=== PATIENT | female | born 1980 | race Caucasian/White ===

== ENCOUNTER 2019-05-07 21:54 | Inpatient (IN) | payer OTHER ==
[2019-05-07] MEDS ORDERED: ACETAMINOPHEN INJECTION 100 ML IVPB ONE (22:04)
--- NOTE | 2019-05-07 22:50 | PDOC ---
History of Present Illness - General Chief Complaint: Pain Stated Complaint: BI/LATERAL PATELLA/PAIN Time Seen by Provider: 05/07/19 22:40 - History of Present Illness Initial Comments: 05/08/19 00:49 39 yo F no PMH presenting with myalgias. Reports that she went to [facility] on Wednesday due to swelling and pain in her L knee. Reports that the knee was drained and she was diagnosed with bursitis, sent home on ibuprofen 800mg. However, since discharge she has had worsening muscle pains in her leg along with weakness. States that she has been unable to go to the pharmacy to get her ibuprofen, has not eaten or drank much in several days due to difficulty with mobility (using crutches currently). Further complains of chills and subjective fever. Denies being sexually active or having multiple sexual partners. No known tick exposure. Denies CP, SOB, recent travel, [place], N/V, sick contacts, constipation/diarrhea, urinary changes. Endorses myalgias, generalized weakness, chills. Past History - Past Medical History Allergies/Adverse Reactions: Allergies Allergy/AdvReac Type Severity Reaction Status Date / Time No Known Allergies Allergy Verified 05/08/19 00:06 COPD: No - Psycho Social/Smoking Cessation Hx Smoking History: Never smoked Review of Systems - Review of Systems Comments:: 05/08/19 04:41 GENERAL/CONSTITUTIONAL: No fever or chills. Generalized weakness. HEAD, EYES, EARS, NOSE AND THROAT: No change in vision. No ear pain or discharge. No sore throat. CARDIOVASCULAR: No chest pain or shortness of breath. RESPIRATORY: No cough, wheezing, or hemoptysis. GASTROINTESTINAL: No nausea, vomiting, diarrhea or constipation. GENITOURINARY: No dysuria, frequency, or change in urination. MUSCULOSKELETAL: Generalized myalgias, swelling in b/l knees. No neck or back pain. SKIN: No rash NEUROLOGIC: No headache, vertigo, loss of consciousness, or change in strength/ sensation. ENDOCRINE: No increased thirst. No abnormal weight change. HEMATOLOGIC/LYMPHATIC: No anemia, easy bleeding, or history of blood clots. ALLERGIC/IMMUNOLOGIC: No hives or skin allergy *Physical Exam - Vital Signs Last Vital Signs Temp Pulse Resp BP Pulse Ox 98 F 124 H 20 115/69 98 05/07/19 22:12 05/07/19 22:12 05/07/19 22:12 05/07/19 22:12 05/07/19 22:12 - Physical Exam 05/08/19 04:42 Gen: well-developed, well-nourished, NAD Neuro: AAOX4, CN II-XII intact, FTN intact, EOMI, PERRLA, 5/5 strength, SILT. Normal reflexes. HEENT: atraumatic, normocephalic, dry mucous membranes Neck: trachea midline, supple CV: regular rate, regular rhythm, no murmurs, rubs, or gallops Pulm: CTA b/l, no wheezing Abd: soft, non-distended, non-tender MSK: Intact pulses. ttp in b/l thighs, pain with extension at the knees. Extr: mild b/l knee edema, no deformities Skin: warm, dry ED Treatment Course - LABORATORY CBC & Chemistry Diagram: 05/08/19 00:20 05/08/19 00:20 Medical Decision Making - Medical Decision Making 05/08/19 00:13 Patient presenting with weakness, mild swelling in both legs, myalgias, febrile. - CBC, CMP - ESR/CRP - Ofirmev - reassess 05/08/19 01:14 WBC 16.1, LFTs elevated, CRP elevated. Will send Lyme, admit. 05/08/19 01:38 EKG sinus tachycardia at 113 bpm. Discharge - Discharge Information Problems reviewed: Yes Clinical Impression/Diagnosis: Generalized weakness - Follow up/Referral - Patient Discharge Instructions - Post Discharge Activity
[2019-05-07] MEDS ORDERED: ACETAMINOPHEN 1000 MG/100 ML VIAL (NON FORMULARY) IVPB ONE (23:14)
[2019-05-08 00:40] LABS: BASO % 0.7 % (0-2.0); EOS % 0.3 % (0-4.5); LYMPH % 13.4 % (8-40); MCH 29.4 pg (25.7-33.7); MCHC 33.2 g/dl (32.0-36.0); MEAN CELL VOLUME 88.6 fl (80-96); MEAN PLT VOLUME 8.3 fl (7.5-11.1); MONO % 8.5 % (3.8-10.2); NEUT % 77.1 % (42.8-82.8); PLATELET COUNT 651 K/MM3 (134-434); RBC 4.07 M/mm3 (3.60-5.2); RDW 12.9 % (11.6-15.6); WHITE BLOOD COUNT 16.1 K/mm3 (4.0-10.0)
[2019-05-08 01:04] LABS: ALBUMIN 3.3 g/dl (3.4-5.0); BLOOD UREA NITROGEN 31.7 mg/dL (7-18); CALCIUM 10.1 mg/dL (8.5-10.1); CREATININE 1.1 mg/dL (0.55-1.3); POTASSIUM 3.8 mmol/L (3.5-5.1); TOT PROT 8.6 g/dl (6.4-8.2)
--- NOTE | 2019-05-08 01:31 | PDOC ---
Documentation entered by Sampson Obregon SCRIBE, acting as scribe for Lianna Holliday MD. Lianna Holliday MD: This documentation has been prepared by the rickibe, Sampson Obregon SCRIBE, under my direction and personally reviewed by me in its entirety. I confirm that the documentation accurately reflects all work, treatment, procedures, and medical decision making performed by me. Attending Attestation - Resident Resident Name: Danuta Baca - ED Attending Attestation I have performed the following: I have examined & evaluated the patient, The case was reviewed & discussed with the resident, I agree w/resident's findings & plan, Exceptions are as noted - HPI HPI: 05/07/19 23:08 The patient is a 39 year old female with no past medical history here today for evaluation of bilateral knee pain. The patient reports that she was seen at [facility] on Wednesday for left knee pain and had her left knee drained. She states that since then she has had knee pain with right leg extension and left leg flexion especially when standing up and feels weak due to this pain. She also notes a poor PO intake due to her knee pain. Patient denies headache, lightheadedness. Denies fever, chills. Denies chest pain, shortness of breath. Denies nausea, vomiting, diarrhea, abdominal pain. - Physicial Exam PE: 05/08/19 01:29 39-year-old female presents in no acute distress with complaint of increasing weakness in her legs since she had a reported of her left knee in the ER on Wednesday05/08/19 02:[address] Gerard's physical exam - Medical Decision Making 05/08/19 02:28 Patient did not complain of any fever or chills or nausea or vomiting or headache or shortness of breath upon arrival This patient states she has no significant past medical history and takes no medications Patient had normal rectal tone, no loss of sensation in her extremities, deep tendon reflexes were normal The skin had no signs of induration or erythema Repeat oral temp is 99.5 Review of her labs shows a leukocytosis of 16,000 05/08/19 02:29 She has abnormal chemistries with elevated liver function tests and also a glucose of 165 05/08/19 02:31 concern for this 39-year-old female complaining of joint/extremity pain who has a low-grade temp would be arthritis possibly Lyme Lyme titers were sent 05/08/19 02:32 Patient will be admitted to [facility] for further work-up
--- NOTE | 2019-05-08 02:32 | PN ---
Teaching Attending Note Name of Resident: Melly Mcarthur ATTENDING PHYSICIAN STATEMENT I saw and evaluated the patient. I reviewed the resident's note and discussed the case with the resident. I agree with the resident's findings and plan as documented. SUBJECTIVE: Patient 39 year old woman with no significant PMH presenting with myalgias. Reports that she went to [facility] on Wednesday due to swelling and pain in her left knee. Reports that the knee was drained and she was diagnosed with bursitis, sent home on ibuprofen 800 mg. However, since discharge she has had worsening muscle pains in her leg along with weakness. States that she has been unable to go to the pharmacy to get her ibuprofen, has not eaten or drank much in several days due to difficulty with mobility (using crutches currently). Further complains of chills and subjective fever. Denies being sexually active or having multiple sexual partners. No known tick exposure. Denies chest pain, SOB, recent travel, headache, nausea, vomiting, constipation, diarrhea or dysuria. Has myalgias, generalized weakness and chills. Had contact with one of her sister's sick children over 2 weeks ago. Did not get the Flu vaccine. Denies alcohol, tobacco or illicit drug use. Has not been sexually active for over a year, is not using any contraception and has regular periods. OBJECTIVE: Alert Vital Signs Period Temp Pulse Resp BP Sys/Urrutia Pulse Ox Last 24 Hr 98 F 124 20 115/69 98 HEENT: No Jaundice, eye redness or discharge, PERRLA, EOMI. Normocephalic, atraumatic. External ears are normal and hearing is grossly intact. No nasal discharge. Neck: Supple, nontender. No palpable adenopathy or thyromegaly. No JVD Chest: Good effort. Clear to auscultation and percussion. Heart: Regular. No S3, rub or murmur Abdomen: Not distended, soft, nontender and no HSM. No rebound or guarding. Normal bowel sounds. Ext: Peripheral pulses intact. No leg edema. Skin: Warm and dry. No petechiae, rash or ecchymosis. Neuro: Alert. Oriented x3. CN 2-12 grossly intact. Sensation grossly intact in all four extremities and DTR are symmetric. Psych: Appropriate mood and affect. Good insight. Abnormal Lab Results 05/08/19 05/08/19 05/08/19 00:20 00:20 00:20 WBC 16.1 H Plt Count 651 H Absolute Neuts (auto) 12.4 H ESR Chloride 94 L BUN 31.7 H Random Glucose 165 H AST 101 H ALT 132 H Alkaline Phosphatase 284 H C-Reactive Protein 17.2 H Total Protein 8.6 H Albumin 3.3 L 05/08/19 00:20 WBC Plt Count Absolute Neuts (auto) ESR 90 H Chloride BUN Random Glucose AST ALT Alkaline Phosphatase C-Reactive Protein Total Protein Albumin ASSESSMENT AND PLAN: 1. Generalized weakness/?Migrating arthropathy - Etiology unclear. Flu swab is negative. No acute abnormality on CXR. EKG shows sinus tachycardia with a rate of 113 and LAE. STI panel sent as well as Lyme tests. Will get stat abdominal sonogram and hepatitis serology to evaluate elevated LFTs. Trend LFTs, get blood cultures, HbA1c, uric acid, BISHNU, RF, RPR, SPEP, Knee xrays and HIV test. Urinalysis and urine toxicology pending. Will contact [facility] during the day to get medical records. Though presentation not classic for septic arthritis , her leukocytosis and left shift are concerning - will treat empirically with IV Ancef 2 gm q 8 hours for now pending workup results. Consult ID and Rheumatology. 2. Hypoalbuminemia - Possibly due to combined effects of malnutrition and inflammation associated with comorbid chronic conditions. Will ensure adequate dietary protein intake and also consult trust and estates attorney. 3. ALPHONSE - Likely partly due to dehydration. Will get kidney sonogram, CPK, stat urinalysis, Mg+, phosphate, hydrate and monitor urine output. Avoid nephrotoxic agents such as NSAIDS, aminoglycosides, contrast dyes and certain Alternative medicine products. 4. DVT prophylaxis - Lovenox 40 mg SQ q 24 hours. 5. Advance directives - Full code
--- NOTE | 2019-05-08 03:16 | HP ---
CHIEF COMPLAINT: generalized weakness and joint stiffness PCP: None HISTORY OF PRESENT ILLNESS: 39 y/o woman with no significant PMH presenting to ED because of generalized weakness and migratory joint stiffness/swelling for over a week. According to the patient, over a week ago she experienced mild swelling and stiffness in her left ankle which improved on its own; then her left knee became red, swollen and she could not bear weight on that leg. At that point, she went to [facility] on Wednesday due to the swelling and pain in her left knee. She states that the knee was drained ( yellow/purulent fluid) and she was diagnosed with bursitis and sent home on ibuprofen 800 mg. However, since discharge 3 days ago , she begin to experience stiffness in the right knee and inability to ambulate as a result. She endorsed subjective fevers and chills and sick contact (her niece) but denies any improvement to her joint stiffness as the day prolongs, being sexually active (last intercourse 1.5 yrs ago) or having multiple sexual partners, tick bites, or family history of autoimmune arthritis. She explains that she has been unable to go to the pharmacy to get her ibuprofen, has not eaten or drank much in several days due to difficulty with mobility (using crutches currently) and loss of appetite. She does admit to being unvaccinated. 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 She denies any chest pain, SOB, recent travel, headache, nausea, vomiting, constipation, diarrhea, vaginal discharge, or dysuria. Denies alcohol, tobacco or illicit drug use. NO Dr visit in over a year. ER course was notable for: (1) VS tachy 124, CBC with leukocytosis 16.1, thrombocytosis 651, CMP BUN/Cr 31.7/1.1, BG 165, AST 101, ALT 132, ALP 284, CRP 17.2, ESR 90 (2) UA pending, CXR negative, flu neg (3) orfimev Recent Travel: none PAST MEDICAL HISTORY: none PAST SURGICAL HISTORY: none Social History: Smoking:denies Alcohol:denies Drugs: denies Allergies No Known Allergies Allergy (Verified 05/08/19 00:06) HOME MEDICATIONS: REVIEW OF SYSTEMS CONSTITUTIONAL: fever, chills, generalized weakness, malaise, loss of appetite Absent: diaphoresis, weight change HEENT: Absent: rhinorrhea, nasal congestion, throat pain, throat swelling, difficulty swallowing, mouth swelling, ear pain, eye pain, visual changes CARDIOVASCULAR: Absent: chest pain, syncope, palpitations, irregular heart rate, lightheadedness , peripheral edema RESPIRATORY: Absent: cough, shortness of breath, dyspnea with exertion, orthopnea, wheezing, stridor, hemoptysis GASTROINTESTINAL: Absent: abdominal pain, abdominal distension, nausea, vomiting, diarrhea, constipation, melena, hematochezia GENITOURINARY: Absent: dysuria, frequency, urgency, hesitancy, hematuria, flank pain, genital pain MUSCULOSKELETAL: arthralgia, joint swelling Absent: myalgia, back pain, neck pain SKIN: Absent: rash, itching, pallor HEMATOLOGIC/IMMUNOLOGIC: Absent: easy bleeding, easy bruising, lymphadenopathy, frequent infections ENDOCRINE: Absent: unexplained weight gain, unexplained weight loss, heat intolerance, cold intolerance NEUROLOGIC: Absent: headache, focal weakness or paresthesias, dizziness, unsteady gait, seizure, mental status changes, bladder or bowel incontinence PSYCHIATRIC: Absent: anxiety, depression, suicidal or homicidal ideation, hallucinations. PHYSICAL EXAMINATION Vital Signs - 24 hr 05/07/19 22:12 Temperature 98 F Pulse Rate 124 H Respiratory 20 Rate Blood Pressure 115/69 O2 Sat by Pulse 98 Oximetry (%) GENERAL: Awake, alert, and fully oriented, in mild distress. HEAD: Normal with no signs of trauma. EYES: Pupils equal, round and reactive to light, extraocular movements intact, sclera anicteric, conjunctiva clear. No lid lag. EARS, NOSE, THROAT: oropharynx clear without exudates. Moist mucous membranes. NECK: Normal range of motion, supple without lymphadenopathy, JVD, or masses. LUNGS: Breath sounds equal, clear to auscultation bilaterally. No wheezes, and no crackles. No accessory muscle use. HEART: Regular rate and rhythm, normal S1 and S2 without murmur, rub or gallop. ABDOMEN: Soft, nontender, not distended, normoactive bowel sounds, no guarding, no rebound, no masses. No hepatomegaly or splenomegaly. MUSCULOSKELETAL: Normal range of motion at all joints except for right knee flexion. No bony deformities or tenderness. No CVA tenderness. UPPER EXTREMITIES: 2+ pulses, warm, well-perfused. No cyanosis. No clubbing. No peripheral edema. LOWER EXTREMITIES: 2+ pulses, warm, well-perfused. No calf tenderness. No peripheral edema. NEUROLOGICAL: Cranial nerves II-XII intact. Normal speech. antalgic gait. motor strength 5/5 normal sensation PSYCHIATRIC: Cooperative. Good eye contact. Appropriate mood and affect. SKIN: Warm, dry, normal turgor, no rashes or lesions noted, normal capillary refill. Laboratory Results - last 24 hr 05/08/19 05/08/19 05/08/19 00:18 00:20 00:20 WBC 16.1 H RBC 4.07 Hgb 12.0 Hct 36.0 MCV 88.6 MCH 29.4 MCHC 33.2 RDW 12.9 Plt Count 651 H MPV 8.3 Absolute Neuts (auto) 12.4 H Neutrophils % 77.1 Lymphocytes % 13.4 Monocytes % 8.5 Eosinophils % 0.3 Basophils % 0.7 Nucleated RBC % 0 ESR Sodium Potassium Chloride Carbon Dioxide Anion Gap BUN Creatinine Est GFR (CKD-EPI)AfAm Est GFR (CKD-EPI)NonAf Random Glucose Calcium Total Bilirubin AST ALT Alkaline Phosphatase Creatine Kinase 71 C-Reactive Protein 17.2 H Total Protein Albumin Influenza A (Rapid) Negative Influenza B (Rapid) Negative 05/08/19 05/08/19 00:20 00:20 WBC RBC Hgb Hct MCV MCH MCHC RDW Plt Count MPV Absolute Neuts (auto) Neutrophils % Lymphocytes % Monocytes % Eosinophils % Basophils % Nucleated RBC % ESR 90 H Sodium 136 Potassium 3.8 Chloride 94 L Carbon Dioxide 31 Anion Gap 10 BUN 31.7 H Creatinine 1.1 Est GFR (CKD-EPI)AfAm 72.73 Est GFR (CKD-EPI)NonAf 62.75 Random Glucose 165 H Calcium 10.1 Total Bilirubin 1.0 AST 101 H ALT 132 H Alkaline Phosphatase 284 H Creatine Kinase C-Reactive Protein Total Protein 8.6 H Albumin 3.3 L Influenza A (Rapid) Influenza B (Rapid) ASSESSMENT/PLAN: 39 y/o woman with no significant PMH presenting to ED because of generalized weakness and migratory joint stiffness/swelling for over a week. Right knee pain/stiffness poss 2/2 viral vs inflammatory vs autoimmune etiology pt had left ankle then left knee requiring drainage (with ? purulent/yellow fluid at [facility]) WBC 16.1 with left shift, elevated ESR 90 and CRP 17.2; tho pt denied any risky sexual behavior. no fam hx of autoimmune dis Pt unvaccinated consider obtaining Pt fluid analysis result from [facility] f/u UA Urine and blood cultures ordered cant r/o septic arhtritis so will start on cefazolin 2gm Q8h for coverage ( most common cause is staph) ID Dr Rae consulted BISHNU/ rheum factor ordered to screen for autoimmune causes Rheum Dr Vela consulted uric acid level ordered HIV, RPR, chlamydia/gonorrhea to r/o STD causes Abnormal LFTS tbil 1, AST 101, AST 132, ALP [address] follow up Non specific diet. Denies alcohol use A1c ordered lipid profile Abdominal US ordered to assess liver Hepatitis serology Elevated blood glucose pt has not seen a Dr in over a year and a half f/u morning CMP HbA1c ordered lipid profile DVT lovenox daily Admitted to med-surge Visit type - Emergency Visit Emergency Visit: Yes ED Registration Date: 05/08/19 Care time: The patient presented to the Emergency Department on the above date and was hospitalized for further evaluation of their emergent condition. - New Patient This patient is new to me today: Yes Date on this admission: 05/08/19 - Critical Care Critical Care patient: No ATTENDING PHYSICIAN STATEMENT I saw and evaluated the patient. I reviewed the resident's note and discussed the case with the resident. I agree with the resident's findings and plan as documented. SUBJECTIVE: OBJECTIVE: ASSESSMENT AND PLAN:
[2019-05-08] MEDS: SODIUM CHLORIDE 1,000 ML IV SCH ×2 (04:19→23:39)
[2019-05-08 05:47] LABS: BASO % 1.1 % (0-2.0); EOS % 0.8 % (0-4.5); HEMATOCRIT 34.7 % (32.4-45.2); HEMOGLOBIN 11.8 GM/dL (10.7-15.3); LYMPH % 15.1 % (8-40); MCH 30.2 pg (25.7-33.7); MCHC 34.1 g/dl (32.0-36.0); MEAN CELL VOLUME 88.4 fl (80-96); MEAN PLT VOLUME 8.4 fl (7.5-11.1); MONO % 8.4 % (3.8-10.2); NEUT % 74.6 % (42.8-82.8); PLATELET COUNT 600 K/MM3 (134-434); RBC 3.92 M/mm3 (3.60-5.2); RDW 13.2 % (11.6-15.6); WHITE BLOOD COUNT 13.9 K/mm3 (4.0-10.0)
[2019-05-08 06:14] LABS: BLOOD UREA NITROGEN 31.1 mg/dL (7-18); CALCIUM 9.9 mg/dL (8.5-10.1); CREATININE 1.2 mg/dL (0.55-1.3); POTASSIUM 3.3 mmol/L (3.5-5.1); URIC ACID 8.1 mg/dL (2.6-7.2)
[2019-05-08 06:15] LABS: ALBUMIN 3.5 g/dl (3.4-5.0); BILIRUBIN,TOTAL 1.3 mg/dL (0.2-1); MAGNESIUM 1.5 mg/dL (1.8-2.4); TOT PROT 8.9 g/dl (6.4-8.2)
[2019-05-08 06:17] LABS: CHOLESTEROL 186 mg/dL (50-200); HDL CHOLESTEROL 55 mg/dL (40-60); LDL CHOLESTEROL (ONLY SJRH) 99 mg/dL (5-100); TRIGLYCERIDES 58 mg/dL (0-150)
[2019-05-08] MEDS ORDERED: FLU VACC QS2019-20(6MOS UP)/PF 60 MCG/0.5 ML SYRINGE IM ONE (07:04)
[2019-05-08] MEDS ORDERED: POTASSIUM CHLORIDE TABS 20 MEQ TABLET.ER (FP) PO ONE (09:15)
[2019-05-08] MEDS ORDERED: MAGNESIUM OXIDE 400 MG TABLET (FP) PO ONE (09:15)
[2019-05-08] MEDS ORDERED: CEFAZOLIN 2 GM/D5W 2 GM/50 ML ML IVPB SCH (10:00)
[2019-05-08] MEDS ORDERED: FLU VACCINE QUAD 60 MCG/0.5 ML (MDV 19-20) IM ONE (10:00)
--- NOTE | 2019-05-08 10:06 | EKG ---
Test Reason : Blood Pressure : / mmHG Vent. Rate : 113 BPM Atrial Rate : 113 BPM P-R Int : 144 ms QRS Dur : 070 ms QT Int : 338 ms P-R-T Axes : 056 059 033 degrees QTc Int : 463 ms SINUS TACHYCARDIA POSSIBLE LEFT ATRIAL ENLARGEMENT BORDERLINE ECG NO PREVIOUS ECGS AVAILABLE Confirmed by EUGENIA ESTEVEZ MD ([id number]) on 05/08/2019 10:06:04 AM Referred By: Confirmed By:EUGENIA ESTEVEZ MD
[2019-05-08] MEDS: ENOXAPARIN NA (PORCINE) 40 MG/0.4 ML DISP.SYRIN SQ SCH (10:24)
[2019-05-08 11:15] LABS: EPI CELLS 3.9 /HPF (0-5/HPF); HYALINE CASTS 24 /lpf (0-8); URINE APPEARANCE CLOUDY; URINE BACTERIA 250.7 /hpf (NEGATIVE); URINE BILIRUBIN 1+ (NEGATIVE); URINE COLOR DK YELLOW; URINE GLUCOSE (UA) NEGATIVE (NEGATIVE); URINE KETONE TRACE (NEGATIVE); URINE LEUK ESTERASE 1+ (NEGATIVE); URINE NITRITE NEGATIVE (NEGATIVE); URINE PROTEIN TRACE (NEGATIVE); URINE WBC 25 /hpf (0-5)
[2019-05-08 11:17] LABS: COCAINE, UR NEGATIVE ng/ml (CUTOFF=300); METHADONE, UR NEGATIVE ng/ml (CUTOFF=300); OPIATES, URI NEGATIVE ng/ml (CUTOFF=300); PHENCYCLIDINE,URINE NEGATIVE ng/ml (CUTOFF=25); URINE AMPHETAMINES NEGATIVE ng/ml (CUTOFF=500); URINE BARBITURATES NEGATIVE ng/ml (CUTOFF=200); URINE BENZODIAZEPINES NEGATIVE ng/ml (CUTOFF=200)
[2019-05-08 11:40] LABS: URINE RBC 4.4 /hpf (0-4)
--- NOTE | 2019-05-08 12:33 | PN ---
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 no meds seen at [facility]- she had her knee tapped 05/03/19- I called micro- gram stain with few wbcs, NOS, no growth of culture she was d/leighann on ibuprofen knee improved, she was able to walk by the weekend and then she developed pain and swelling of the both the knees and couldn't walk and came to ED no fevers, no antibiotics at home in ED noted to have leukocytosis, and abnl LFTs, cr 1.2, elevated total protein a/p leukocytosis- of uncelar etiology - would agree with blood cultures bilateral knee pain and swelling- not c/w septic arthritis-probable reactive arthritis very elevated inflammatory markers agree with rheum evaluation , phil, rf hiv negative lyme serology sent observe off antibiotics suggest contacts [facility]- for further test results would xray knees check hep serology liver/renal ultrasound spep knee xrays Problem List - Problems (1) Leukocytosis Code(s): D72.829 - ELEVATED WHITE BLOOD CELL COUNT, UNSPECIFIED (2) Reactive arthritis Code(s): M02.30 - TIMMY'S DISEASE, UNSPECIFIED SITE (3) Transaminitis Code(s): R74.0 - NONSPEC ELEV OF LEVELS OF TRANSAMNS & LACTIC ACID DEHYDRGNSE
--- NOTE | 2019-05-08 14:54 | CONS ---
INFECTIOUS DISEASE CONSULTATION DATE OF CONSULTATION: DATE OF DICTATION: 05/08/2019 HISTORY: This is a 39-year-old woman. She takes no medications at home. She has not seen a doctor recently. She presents with acute onset of left knee pain that began on . She reports she has had intermittent left heel pain that spontaneously resolved. She denies any fevers or chills. She has no respiratory symptoms. She has no GI symptoms. There is no history of any travel. She is not sexually active. She, otherwise, feels well. Her left knee pain was so severe that she could not walk. She went to [facility] on the where she was evaluated. She had her knee tapped. I was able to reach microbiology. Reports the Gram stain showed few white cells. No organisms were seen, and the culture was signed out as negative. No blood cultures were drawn there. She was discharged. She reports an ibuprofen. She had some at home, which she took. She did not take any antibiotics. She reports the leg over the counter over the next 48 hours improved. She was able to get out of bed. The symptoms recurred again, and now she had pain as well in her right knee, and she presented to the ER. She denies any rashes, and she has not had any fevers. PAST MEDICAL HISTORY: Unremarkable. SURGICAL HISTORY: She has never had any surgery. SOCIAL HISTORY: She works in a store. There is no history of any cigarette, alcohol, or substance use. She lives with her sister. They have 2 pet dogs. There is no history of any tick bites or mosquito bites. There is no history of any hiking or any travel. FAMILY HISTORY: Negative for any kind of arthritis. REVIEW OF SYSTEMS: Notable for the weakness. She denies to me any nausea, vomiting, change in appetite, fevers, or chills. PHYSICAL EXAMINATION: General: She is awake and alert. Vital Signs: Her temperature is 98.5, pulse is 117, blood pressure is 117/70, respiratory rate is 18. She weighs 74 kg. She is saturating 100% on room air. HEENT: She is normocephalic. Her eyes are anicteric. She has no thrush or pharyngitis. Neck: Supple. She has no lymphadenopathy. Lungs: Clear to auscultation. Heart: Regular rate and rhythm. Abdomen: Soft, nontender. Extremities: Without edema. She has some mild swelling of both knees. There is no associated erythema or induration. Skin: She has no rash. DIAGNOSTIC DATA: Her labs were notable for a white count on admission was 16.9 , this morning 13.9, platelets 600 with a sedimentation rate of 90. Her CRP is 17, her total bilirubin is 1.3 with AST 163, ALT 163, and alkaline phosphatase of 305. Total protein is 8.9. BUN 31, creatinine 1.2. Random glucose 149. Hemoglobin A1C is 6.9. Urinalysis has 25 white cells. Urine toxicology is negative. Her HIV and Influenza screen are negative as well as RPR. Blood cultures and urine cultures are pending. Chest x-ray is negative. In summary, this is a 39-year-old woman admitted with bilateral knee pain and swelling, which is really not consistent with septic arthritis, suspect reactive arthritis. She has a leukocytosis as well of unclear etiology. Would agree with blood cultures. She has very elevated, inflammatory markers. Would agree with rheumatology evaluation, BISHNU screening. She has been HIV tested and is negative. Lyme serology has been sent. Would observe off antibiotics at this time. I would suggest that you contact [facility] for further test results that we may have an arthrocentesis cell count. Would x-ray both her knees. Would check hepatitis serology, a liver renal ultrasound, and would send an SPEP given the elevated total protein. Further recommendations to follow. IMTIAZ GAO M.D. [id number] RAMOS
--- NOTE | 2019-05-08 15:09 | PN ---
Physical Exam: SUBJECTIVE: Patient seen and examined. Pt reports left knee and lower leg pain with walking. She currently denies right knee pain. She denies chills or fever. OBJECTIVE: Vital Signs Period Temp Pulse Resp BP Sys/Urrutia Pulse Ox Last 24 Hr 98 F-98.5 F 117-124 18-20 109-119/69-73 98-100 GENERAL: The patient is awake, alert, and fully oriented, in no acute distress. HEAD: Normal with no signs of trauma. EYES: PERRL, extraocular movements intact, conjunctiva clear. ENT: Ears normal, nares patent, moist mucous membranes. NECK: Trachea midline, full range of motion LUNGS: Clear to auscultation bilaterally, no wheezes, no crackles, no accessory muscle use. HEART: Regular rate and rhythm, S1, S2 without murmur, rub or gallop. ABDOMEN: Soft, nontender, nondistended, normoactive bowel sounds EXTREMITIES: Warm, well-perfused, slight edema b/l knees, no erythema NEUROLOGICAL: Cranial nerves II through XII grossly intact. Normal speech, gait not observed. PSYCH: Normal mood, normal affect. SKIN: Warm, dry, normal turgor Laboratory Results - last 24 hr 05/08/19 05/08/19 05/08/19 00:18 00:20 00:20 WBC 16.1 H RBC 4.07 Hgb 12.0 Hct 36.0 MCV 88.6 MCH 29.4 MCHC 33.2 RDW 12.9 Plt Count 651 H MPV 8.3 Absolute Neuts (auto) 12.4 H Neutrophils % 77.1 Lymphocytes % 13.4 Monocytes % 8.5 Eosinophils % 0.3 Basophils % 0.7 Nucleated RBC % 0 ESR Sodium Potassium Chloride Carbon Dioxide Anion Gap BUN Creatinine Est GFR (CKD-EPI)AfAm Est GFR (CKD-EPI)NonAf Random Glucose Hemoglobin A1c % Lactic Acid Uric Acid Calcium Phosphorus Magnesium Total Bilirubin AST ALT Alkaline Phosphatase Creatine Kinase 71 C-Reactive Protein 17.2 H Total Protein Albumin Triglycerides Cholesterol Total LDL Cholesterol HDL Cholesterol Urine Color Urine Appearance Urine pH Ur Specific [place] Urine Protein Urine Glucose (UA) Urine Ketones Urine Blood Urine Nitrite Urine Bilirubin Urine Urobilinogen Ur Leukocyte Esterase Urine WBC (Auto) Urine RBC (Auto) Urine Casts (Auto) U Pathogenic Cast Auto U Epithel Cells (Auto) Urine Bacteria (Auto) Opiates Screen Methadone Screen Barbiturate Screen Phencyclidine Screen Ur Amphetamines Screen MDMA (Ecstasy) Screen Benzodiazepines Screen Cocaine Screen U Marijuana (THC) Screen Rheumatoid Factor RPR Titer HIV 1&2 Antibody Screen HIV P24 Antigen Influenza A (Rapid) Negative Influenza B (Rapid) Negative 05/08/19 05/08/19 05/08/19 00:20 00:20 04:35 WBC RBC Hgb Hct MCV MCH MCHC RDW Plt Count MPV Absolute Neuts (auto) Neutrophils % Lymphocytes % Monocytes % Eosinophils % Basophils % Nucleated RBC % ESR 90 H Sodium 136 Potassium 3.8 Chloride 94 L Carbon Dioxide 31 Anion Gap 10 BUN 31.7 H Creatinine 1.1 Est GFR (CKD-EPI)AfAm 72.73 Est GFR (CKD-EPI)NonAf 62.75 Random Glucose 165 H Hemoglobin A1c % Lactic Acid 1.0 Uric Acid Calcium 10.1 Phosphorus Magnesium Total Bilirubin 1.0 AST 101 H ALT 132 H Alkaline Phosphatase 284 H Creatine Kinase C-Reactive Protein Total Protein 8.6 H Albumin 3.3 L Triglycerides Cholesterol Total LDL Cholesterol HDL Cholesterol Urine Color Urine Appearance Urine pH Ur Specific [place] Urine Protein Urine Glucose (UA) Urine Ketones Urine Blood Urine Nitrite Urine Bilirubin Urine Urobilinogen Ur Leukocyte Esterase Urine WBC (Auto) Urine RBC (Auto) Urine Casts (Auto) U Pathogenic Cast Auto U Epithel Cells (Auto) Urine Bacteria (Auto) Opiates Screen Methadone Screen Barbiturate Screen Phencyclidine Screen Ur Amphetamines Screen MDMA (Ecstasy) Screen Benzodiazepines Screen Cocaine Screen U Marijuana (THC) Screen Rheumatoid Factor RPR Titer HIV 1&2 Antibody Screen HIV P24 Antigen Influenza A (Rapid) Influenza B (Rapid) 05/08/19 05/08/19 05/08/19 05:30 05:30 05:30 WBC 13.9 H RBC 3.92 Hgb 11.8 Hct 34.7 MCV 88.4 MCH 30.2 MCHC 34.1 RDW 13.2 Plt Count 600 H MPV 8.4 Absolute Neuts (auto) 10.4 H Neutrophils % 74.6 Lymphocytes % 15.1 Monocytes % 8.4 Eosinophils % 0.8 D Basophils % 1.1 Nucleated RBC % 0 ESR Sodium 132 L Potassium 3.3 L Chloride 90 L Carbon Dioxide 31 Anion Gap 11 BUN 31.1 H Creatinine 1.2 Est GFR (CKD-EPI)AfAm 65.47 Est GFR (CKD-EPI)NonAf 56.48 Random Glucose 149 H Hemoglobin A1c % Lactic Acid Uric Acid 8.1 H Calcium 9.9 Phosphorus 4.0 Magnesium 1.5 L Total Bilirubin 1.3 H AST 163 H ALT 163 H Alkaline Phosphatase 305 H Creatine Kinase C-Reactive Protein Total Protein 8.9 H Albumin 3.5 Triglycerides 58 Cholesterol 186 Total LDL Cholesterol 99 HDL Cholesterol 55 Urine Color Urine Appearance Urine pH Ur Specific [place] Urine Protein Urine Glucose (UA) Urine Ketones Urine Blood Urine Nitrite Urine Bilirubin Urine Urobilinogen Ur Leukocyte Esterase Urine WBC (Auto) Urine RBC (Auto) Urine Casts (Auto) U Pathogenic Cast Auto U Epithel Cells (Auto) Urine Bacteria (Auto) Opiates Screen Methadone Screen Barbiturate Screen Phencyclidine Screen Ur Amphetamines Screen MDMA (Ecstasy) Screen Benzodiazepines Screen Cocaine Screen U Marijuana (THC) Screen Rheumatoid Factor < 10.0 RPR Titer HIV 1&2 Antibody Screen HIV P24 Antigen Influenza A (Rapid) Influenza B (Rapid) 05/08/19 05/08/19 05/08/19 05:30 05:30 05:30 WBC RBC Hgb Hct MCV MCH MCHC RDW Plt Count MPV Absolute Neuts (auto) Neutrophils % Lymphocytes % Monocytes % Eosinophils % Basophils % Nucleated RBC % ESR Sodium Potassium Chloride Carbon Dioxide Anion Gap BUN Creatinine Est GFR (CKD-EPI)AfAm Est GFR (CKD-EPI)NonAf Random Glucose Hemoglobin A1c % 6.9 H Lactic Acid Uric Acid Calcium Phosphorus Magnesium Total Bilirubin AST ALT Alkaline Phosphatase Creatine Kinase C-Reactive Protein Total Protein Albumin Triglycerides Cholesterol Total LDL Cholesterol HDL Cholesterol Urine Color Urine Appearance Urine pH Ur Specific [place] Urine Protein Urine Glucose (UA) Urine Ketones Urine Blood Urine Nitrite Urine Bilirubin Urine Urobilinogen Ur Leukocyte Esterase Urine WBC (Auto) Urine RBC (Auto) Urine Casts (Auto) U Pathogenic Cast Auto U Epithel Cells (Auto) Urine Bacteria (Auto) Opiates Screen Methadone Screen Barbiturate Screen Phencyclidine Screen Ur Amphetamines Screen MDMA (Ecstasy) Screen Benzodiazepines Screen Cocaine Screen U Marijuana (THC) Screen Rheumatoid Factor RPR Titer Nonreactive HIV 1&2 Antibody Screen Negative HIV P24 Antigen Negative Influenza A (Rapid) Influenza B (Rapid) 05/08/19 05/08/19 10:15 10:15 WBC RBC Hgb Hct MCV MCH MCHC RDW Plt Count MPV Absolute Neuts (auto) Neutrophils % Lymphocytes % Monocytes % Eosinophils % Basophils % Nucleated RBC % ESR Sodium Potassium Chloride Carbon Dioxide Anion Gap BUN Creatinine Est GFR (CKD-EPI)AfAm Est GFR (CKD-EPI)NonAf Random Glucose Hemoglobin A1c % Lactic Acid Uric Acid Calcium Phosphorus Magnesium Total Bilirubin AST ALT Alkaline Phosphatase Creatine Kinase C-Reactive Protein Total Protein Albumin Triglycerides Cholesterol Total LDL Cholesterol HDL Cholesterol Urine Color Dk yellow Urine Appearance Cloudy Urine pH 5.0 Ur Specific [place] 1.018 Urine Protein Trace Urine Glucose (UA) Negative Urine Ketones Trace H Urine Blood Negative Urine Nitrite Negative Urine Bilirubin 1+ H Urine Urobilinogen 2.0 H Ur Leukocyte Esterase 1+ H Urine WBC (Auto) 25 Urine RBC (Auto) 4.4 Urine Casts (Auto) 24 U Pathogenic Cast Auto 5 U Epithel Cells (Auto) 3.9 Urine Bacteria (Auto) 250.7 Opiates Screen Negative Methadone Screen Negative Barbiturate Screen Negative Phencyclidine Screen Negative Ur Amphetamines Screen Negative MDMA (Ecstasy) Screen Negative Benzodiazepines Screen Negative Cocaine Screen Negative U Marijuana (THC) Screen Negative Rheumatoid Factor RPR Titer HIV 1&2 Antibody Screen HIV P24 Antigen Influenza A (Rapid) Influenza B (Rapid) Active Medications Generic Name Dose Route Start Last Admin Trade Name Freq PRN Reason Stop Dose Admin Enoxaparin Sodium 40 mg 05/08/19 10:00 05/08/19 10:24 Lovenox - SQ 40 mg DAILY JORJE Administration Sodium Chloride 1,000 mls @ 83 mls/hr 05/08/19 04:15 05/08/19 04:19 Normal Saline - IV 83 mls/hr ASDIR JORJE Administration ASSESSMENT/PLAN: Ms. Franks is a 39y/o female with no significant PMH who presents with b/l knee pain. She reports having left knee drained about 5 days ago and was diagnosed with bursitis at [facility]. She was given Ibuprofen and pain and swelling did not improve. #b/l arthropathy -leukocytosis improving -Lyme test -rheum factor and BISHNU negative -chlamydia -HIV negative -RPR -b/l knee x-rays -ortho consulted -rheum consulted -ID consulted #transaminitis -hep panel -U/S- possible diffuse hepatic steatosis #hypomagnesemia -replete and monitor #hypokalemia -replete and monitor #DM -A1C 6.9 -SSI -BGMs -consider nutrition consult DVT Ppx lovenox FEN NS 83mL/hr monitor K and Mg diabetic diet dispo med/surg Visit type - Emergency Visit Emergency Visit: Yes ED Registration Date: 05/08/19 Care time: The patient presented to the Emergency Department on the above date and was hospitalized for further evaluation of their emergent condition. - New Patient This patient is new to me today: Yes Date on this admission: 05/08/19 - Critical Care Critical Care patient: No - Discharge Referral Referred to [facility] Med P.C.: No ATTENDING PHYSICIAN STATEMENT I saw and evaluated the patient. I reviewed the resident's note and discussed the case with the resident. I agree with the resident's findings and plan as documented. SUBJECTIVE: OBJECTIVE: ASSESSMENT AND PLAN:
--- NOTE | 2019-05-08 18:38 | CONSULT ---
Consult - text type - Consultation Consultation Note: ORTHOPEDIC SURGERY CONSULTATION NOTE Department of Orthopedic Surgery HISTORY OF PRESENT ILLNESS Crystal Franks is a 39 year old female who was admitted to [facility] right knee pain. The orthopedic service was consulted to rule out septic arthritis. The patient began having left knee about 1 week ago. She went to [facility] where they aspirated the left knee and discharged the patient home. Her left knee pain improved after the aspiration. Her right knee began bothering her a few days ago. She came to the ED here after she noticed it swelling. She denies any injury or trauma. The patient notes pain in the right knee which improves with rest. Her left knee symptoms has significantly improved. Denies numbness, tingling or other constitutional complaints. Denies tobacco use, drug use, alcohol abuse. The patient uses no assistive devices at baseline. Active Problems Problem Status Category Onset Generalized weakness Acute Medical Social History Smoking history Never smoked Hx Alcohol Use No Allergies Allergy/AdvReac Type Severity Reaction Status Date / Time No Known Allergies Allergy Verified 05/08/19 00:06 Active Medications Generic Name Dose Route Start Last Admin Trade Name Trang PRN Reason Stop Dose Admin Enoxaparin Sodium 40 mg 05/08/19 10:00 05/08/19 10:24 Lovenox - SQ 40 mg DAILY JORJE Administration Sodium Chloride 1,000 mls @ 83 mls/hr 05/08/19 04:15 05/08/19 04:19 Normal Saline - IV 83 mls/hr ASDIR JORJE Administration Insulin Aspart 1 vial 05/08/19 22:00 Novolog Vial Sliding Scale - SQ ACHS JORJE Protocol Vital Signs (last) Temp Pulse Resp BP Pulse Ox 99 F 115 H 18 107/59 L 100 05/08/19 14:00 05/08/19 14:00 05/08/19 14:00 05/08/19 14:00 05/08/19 09:00 Intake and Output 05/06/19 05/07/19 05/08/19 23:59 23:59 23:59 Intake Total 80 Balance 80 Intake: IV 80 Normal Saline - 1,000 ml 80 @ 83 mls/hr IV ASDIR JORJE Rx#:[id number] Other: Voiding Method Toilet Bedpan Bowel Movement No Weight 145 lb 164 lb 8 oz Height 5 ft 2 in 5 ft 2 in Body Mass Index (BMI) 26.5 30.0 Weight Measurement Method Patient Lift Scale Weight Measurement Method Est/Stated by Patient Laboratory 05/08/19 05:30 05/08/19 05:30 Left Knee Aspiration Results ([facility] 05/03/2019) 25 mL of yellow cloudy fluid sent Cell count 60,000 cells; 90% PMN Culture: No growth final FAMILY HISTORY Reviewed and noncontributory. REVIEW OF SYMPTOMS A twelve-point review of systems was performed and was negative except as noted in HPI. PHYSICAL EXAM Constitutional: Alert and oriented to person, place, and time. Appears well- developed and well-nourished. No acute distress, appropriate mood and affect. HEENT: Normocephalic, atraumatic Cardiovascular: Regular rate and rhythm, extremities warm, no cyanosis. Pulmonary: Breathing comfortably, normal air movement, no audible wheezing. Right Upper Extremity: No tenderness to palpation. Full passive and active ROM, free from pain. Left Upper Extremity: No tenderness to palpation. Full passive and active ROM, free from pain. Right Lower Extremity: Skin warm, dry, and intact; no lesions, rashes or ulcers noted. There is a large effusion. Muscle mass equal and symmetric to contralateral side. No atrophy noted. Tender to palpation at right knee; nontender throughout rest of extremity. No cords or calf tenderness. No significant calf/ankle edema. Knee ROM 10-45 degrees limited by pain. Full passive and active ROM hip and ankle, free from pain. Joints stable with no pathologic laxity. EHL/TA/GS motor intact; SILT distally; 2+ DP pulses; Cap refill brisk. Tone and reflexes normal. Left Lower Extremity: Skin warm, dry, and intact; no lesions, rashes or ulcers noted. There is a small effusion. Muscle mass equal and symmetric to contralateral side. No atrophy noted. Tender to palpation at left knee; nontender throughout rest of extremity. No cords or calf tenderness. No significant calf/ankle edema. Knee ROM 0-110 degrees limited by pain at the extremes of motion. Full passive and active ROM hip and ankle, free from pain. Joints stable with no pathologic laxity. EHL/TA/GS motor intact; SILT distally; 2+ DP pulses; Cap refill brisk. Tone and reflexes normal. IMAGING I personally reviewed radiographs of bilateral knees. They demonstrate mild degenerative changes with no evidence of fracture, dislocation, or bony lesions. There is chondrocalcinosis present in the left knee. ASSESSMENT AND PLAN Crystal Franks is a 39 year old female presenting with right knee pain and atraumatic knee effusion. Her left knee signs and symptoms have significantly improved after knee aspiration performed on 05/03/2019 at [facility]. Culture results of left knee ([facility]) report no growth. We have reviewed the imaging and clinical findings in detail, as well as their potential implications. After appropriate informed discussion, the patients knee was aspirated. Procedure Note: Right Knee Arthrocentesis We explaining the risks, benefits and alternatives of a knee aspiration. After informed consent the patient elected to proceed. After sterile preparation with alcohol and chlorhexidine, 2 mL 1% lidocaine was injected in the subcutaneous aspect of the superolateral knee. The knee was then aspirated using an 18 gauge needle. 35 mL of clear, straw colored fluid was obtained. She tolerated the procedure well. The area was dressed. - FU right knee synovial fluid results: cell count, culture, gram stain, and crystals. - NPO - WBAT - ID consult appreciated - FU Rheumatology - Pain control - DVT prophylaxis - Ice/Elevation right knee - Appreciate medical management - Nutrition optimization, decubitus precautions heel/sacrum All questions were answered. Thank you for involving our team in the care of this patient. We will follow the patient with you. Please call us at [phone] with questions.
[2019-05-08 19:57] LABS: SYNOVIAL FLUID RBC 6774 /mm3; SYNOVIAL FLUID SOURCE KNEE
--- NOTE | 2019-05-08 20:09 | CONSULT ---
Consult Consult Specialty:: Rheumatology - History of Present Illness History of Present Illness: 39 y/o female with no significant PMH admitted with migratory arthritis. HPI The patient reports a 5 day history of migratory arthritis involving left ankle, then left knee and finally right knee. The joints involved have significant pain and swelling resulting in difficulty in walking. The patient reports she has not been sexually active in more than 1 years and she denies abdominal pain, diarrhea, red eyes, skin rash, cough, nasal congestion, sore throat, shortness of breath, chest pain or fever, She took Ibuprofen at home with no significant improvement. Laboratory work-up on admission revealed a CBC with a WBC of 16.1, Hgb 12, HCT 36 and platelets 651. ESR 90 and CRP 17.2. Glucose: 165 and Creatinine 1.1. AST 101 and ALT 132 and today AST 163 and ALT 163. Urinalysis with LE 1+ and no blood or protein. Rheumatoid factor was negative. Serology for Lyme disease, hepatitis B and C, HIV and gonorrhea is pending. X rays of the knees revealed mild narrowing of the medial compartment in the left. - History Source History Provided By: Patient, Medical Record Limitations to Obtaining History: No Limitations - Past Medical History ...LMP: 04/21/19 ...: No - Alcohol/Substance Use Hx Alcohol Use: No - Smoking History Smoking history: Never smoked Home Medications - Allergies Allergies/Adverse Reactions: Allergies Allergy/AdvReac Type Severity Reaction Status Date / Time No Known Allergies Allergy Verified 05/08/19 00:06 - Home Medications Home Medications: Ambulatory Orders Ibuprofen 400 mg PO Q6H PRN 05/08/19 Review of Systems - Review of Systems Constitutional: reports: Malaise Eyes: reports: No Symptoms HENT: reports: No Symptoms Neck: reports: No Symptoms Cardiovascular: reports: No Symptoms Respiratory: reports: No Symptoms Gastrointestinal: reports: No Symptoms Genitourinary: reports: No Symptoms Musculoskeletal: reports: Other (See HPI) Physical Exam Vital Signs: Vital Signs Temperature 99 F 05/08/19 14:00 Pulse Rate 115 H 05/08/19 14:00 Respiratory Rate 18 05/08/19 14:00 Blood Pressure 107/59 L 05/08/19 14:00 O2 Sat by Pulse Oximetry (%) 100 05/08/19 09:00 Constitutional: Yes: Moderate Distress Eyes: Yes: WNL HENT: Yes: WNL Neck: Yes: WNL Cardiovascular: Yes: WNL Respiratory: Yes: WNL Gastrointestinal: Yes: WNL Musculoskeletal: Yes: Other (Tenderness and swelling of the right knee. No other active joints.) Labs: CBC, BMP 05/08/19 05:30 05/08/19 05:30 Laboratory Tests 05/08/19 05/08/19 05/08/19 00:18 00:20 00:20 ESR 90 H Uric Acid Calcium Phosphorus Magnesium Total Bilirubin AST ALT Alkaline Phosphatase Creatine Kinase 71 C-Reactive Protein 17.2 H Urine Color Urine Appearance Urine pH Ur Specific [place] Urine Protein Urine Glucose (UA) Urine Ketones Urine Blood Urine Nitrite Urine Bilirubin Urine Urobilinogen Ur Leukocyte Esterase Urine WBC (Auto) Urine RBC (Auto) Urine Casts (Auto) Rheumatoid Factor Influenza A (Rapid) Negative Influenza B (Rapid) Negative 05/08/19 05/08/19 05/08/19 05:30 05:30 10:15 ESR Uric Acid 8.1 H Calcium 9.9 Phosphorus 4.0 Magnesium 1.5 L Total Bilirubin 1.3 H AST 163 H ALT 163 H Alkaline Phosphatase 305 H Creatine Kinase C-Reactive Protein Urine Color Dk yellow Urine Appearance Cloudy Urine pH 5.0 Ur Specific [place] 1.018 Urine Protein Trace Urine Glucose (UA) Negative Urine Ketones Trace H Urine Blood Negative Urine Nitrite Negative Urine Bilirubin 1+ H Urine Urobilinogen 2.0 H Ur Leukocyte Esterase 1+ H Urine WBC (Auto) 25 Urine RBC (Auto) 4.4 Urine Casts (Auto) 24 Rheumatoid Factor < 10.0 Influenza A (Rapid) Influenza B (Rapid) Problem List - Problems (1) Inflammatory polyarthropathy Assessment/Plan: Migratory arthritis with no evidence of coliform of venereal infection and no conjunctivitis. It is unlikely that she has reactive arthritis, Rule out Post -streptococcal reactive arthritis. In this condition patients can have transient hepatitis. Rule out viral hepatitis. Plan: Anti-DNaseB. Tomorrow I will request ASO. Pending hepatitis serology. I did not prescribe medications. Code(s): M06.4 - INFLAMMATORY POLYARTHROPATHY
[2019-05-08 20:28] LABS: SYNOVIAL FLUID LYMPHOCYTES 10 %; SYNOVIAL FLUID MACROPHAGES 1 %; SYNOVIAL FLUID MONOCYTES 8 %; SYNOVIAL FLUID NEUTROPHILS 81 %
--- NOTE | 2019-05-08 20:59 | PN ---
Teaching Attending Note Name of Resident: Silvana Seymour ATTENDING PHYSICIAN STATEMENT I saw and evaluated the patient. I reviewed the resident's note and discussed the case with the resident. I agree with the resident's findings and plan as documented. SUBJECTIVE: Patient is comfortable but c/o b/l knee pain. R>L. OBJECTIVE: Vital Signs Temperature 99 F 05/08/19 14:00 Pulse Rate 115 H 05/08/19 14:00 Respiratory Rate 18 05/08/19 14:00 Blood Pressure 107/59 L 05/08/19 14:00 O2 Sat by Pulse Oximetry (%) 100 05/08/19 09:00 GENERAL: The patient is awake, alert, and fully oriented, in no acute distress. HEAD: Normal with no signs of trauma. EYES: PERRL, extraocular movements intact, sclera anicteric, conjunctiva clear. ENT: Ears normal, oropharynx clear without exudates, moist mucous membranes. NECK: Trachea midline, full range of motion, supple. LUNGS: Breath sounds equal, clear to auscultation bilaterally, no wheezes, no crackles, no accessory muscle use. HEART: Regular rate and rhythm, S1, S2 without murmur, rub or gallop. ABDOMEN: Soft, nontender, nondistended, normoactive bowel sounds, no guarding, no rebound, no hepatosplenomegaly, no masses. EXTREMITIES: 2+ pulses, warm, well-perfused, Right knee sweeling >left knee NEUROLOGICAL: Cranial nerves II through XII grossly intact. Normal speech, gait not observed. PSYCH: Normal mood, normal affect. SKIN: Warm, dry, normal turgor, no rashes or lesions noted CBCD WBC 13.9 K/mm3 (4.0-10.0) H 05/08/19 05:30 RBC 3.92 M/mm3 (3.60-5.2) 05/08/19 05:30 Hgb 11.8 GM/dL (10.7-15.3) 05/08/19 05:30 Hct 34.7 % (32.4-45.2) 05/08/19 05:30 MCV 88.4 fl (80-96) 05/08/19 05:30 MCHC 34.1 g/dl (32.0-36.0) 05/08/19 05:30 RDW 13.2 % (11.6-15.6) 05/08/19 05:30 Plt Count 600 K/MM3 (134-434) H 05/08/19 05:30 MPV 8.4 fl (7.5-11.1) 05/08/19 05:30 CMP Sodium 132 mmol/L (136-145) L 05/08/19 05:30 Potassium 3.3 mmol/L (3.5-5.1) L 05/08/19 05:30 Chloride 90 mmol/L (98-107) L 05/08/19 05:30 Carbon Dioxide 31 mmol/L (21-32) 05/08/19 05:30 Anion Gap 11 MMOL/L (8-16) 05/08/19 05:30 BUN 31.1 mg/dL (7-18) H 05/08/19 05:30 Creatinine 1.2 mg/dL (0.55-1.3) 05/08/19 05:30 Random Glucose 149 mg/dL (74-106) H 05/08/19 05:30 Calcium 9.9 mg/dL (8.5-10.1) 05/08/19 05:30 Total Bilirubin 1.3 mg/dL (0.2-1) H 05/08/19 05:30 AST 163 U/L (15-37) H 05/08/19 05:30 ALT 163 U/L (13-61) H 05/08/19 05:30 Alkaline Phosphatase 305 U/L (45-117) H 05/08/19 05:30 Total Protein 8.9 g/dl (6.4-8.2) H 05/08/19 05:30 Albumin 3.5 g/dl (3.4-5.0) 05/08/19 05:30 CARDIAC ENZYMES Creatine Kinase 71 U/L (26-192) 05/08/19 00:20 Current Medications Generic Name Dose Route Start Last Admin Trade Name Freq PRN Reason Stop Dose Admin Enoxaparin Sodium 40 mg 05/08/19 10:00 05/08/19 10:24 Lovenox - SQ 40 mg DAILY JORJE Administration Sodium Chloride 1,000 mls @ 83 mls/hr 05/08/19 04:15 05/08/19 04:19 Normal Saline - IV 83 mls/hr ASDIR JORJE Administration Insulin Aspart 1 vial 05/08/19 22:00 Novolog Vial Sliding Scale - SQ ACHS [facility] Protocol ASSESSMENT AND PLAN: Patient is a 39yof with no significant pMhx presents with b/l knee pain x 5 days. patient was at [facility] 5[facility] ago where her left knee was drained and was told that she has a bursitis. was prescribed Ibuprofen, which was not relieved the pain. # leukocytosis- of uncelar etiology - calderon cx , lyme titer # bilateral knee pain and swelling- not septic arthritis, will stop the antibiotic , ortho consult , dr rivera for consult , xrays of both knees ordered , lyme serology was ordered, will try to get the medical records from [facility] #hiv negative #transaminitis: U/S reported possible diffuse hepatic steatosis, will trend , check hep serology #Acute hyponatremia: will hydrate the patient #hypomagnesemia: replete and monitor #hypokalemia: replete and monitor #T2DM: A1C 6.9, SSI, GMs, lifestyle modification DVT Px: lovenox -spep
[2019-05-08] MEDS: INSULIN SLIDING SCALE (NOVOLOG) 1 VIAL SQ SCH (21:46)
[2019-05-09] MEDS: SODIUM CHLORIDE 1,000 ML IV SCH (07:02)
[2019-05-09] MEDS: INSULIN SLIDING SCALE (NOVOLOG) 1 VIAL SQ SCH ×4 (07:02→22:17)
--- NOTE | 2019-05-09 07:40 | PN ---
Progress Note (short form) - Note Progress Note: ORTHOPEDIC SURGERY PROGRESS NOTE Department of Orthopedic Surgery SUBJECTIVE No acute events overnight. No complaints currently. Right knee pain improving. Denies chest pain, shortness of breath, or calf pain. No nausea or vomiting. Tolerating oral intake. PHYSICAL EXAMINATION General: Alert, oriented, cooperative and no distress. Right Lower Extremity: Skin warm, dry, and intact; no lesions, rashes or ulcers noted. There is a trace effusion. Muscle mass equal and symmetric to contralateral side. No atrophy noted. Less tenderness right knee; nontender throughout rest of extremity. No cords or calf tenderness. No significant calf/ ankle edema. Knee ROM 10-90 degrees limited by pain. Full passive and active ROM hip and ankle, free from pain. Joints stable with no pathologic laxity. EHL/ TA/GS motor intact; SILT distally; 2+ DP pulses; Cap refill brisk. Tone and reflexes normal. Left Lower Extremity: Skin warm, dry, and intact; no lesions, rashes or ulcers noted. There is a small effusion. Muscle mass equal and symmetric to contralateral side. No atrophy noted. Tender to palpation at left knee; nontender throughout rest of extremity. No cords or calf tenderness. No significant calf/ankle edema. Knee ROM 0-110 degrees limited by pain at the extremes of motion. Full passive and active ROM hip and ankle, free from pain. Joints stable with no pathologic laxity. EHL/TA/GS motor intact; SILT distally; 2+ DP pulses; Cap refill brisk. Tone and reflexes normal. DVT Exam: No evidence of DVT seen on physical exam; No cords or calf tenderness ; No significant calf/ankle edema. Intake & Output 05/07/19 05/08/19 05/09/19 23:59 23:59 23:59 Intake Total 1532 120 Balance 1532 120 Intake: IV 1242 Normal Saline - 1,000 ml 1242 @ 83 mls/hr IV ASDIR JORJE Rx#:[id number] IVPB 50 Oral 240 120 Other: Voiding Method Toilet Bedpan Bedpan Bowel Movement No No Weight 145 lb 164 lb 8 oz Height 5 ft 2 in 5 ft 2 in Body Mass Index (BMI) 26.5 30.0 Weight Measurement Method Patient Lift Scale Weight Measurement Method Est/Stated by Patient Active Medications Generic Name Dose Route Start Last Admin Trade Name Freq PRN Reason Stop Dose Admin Enoxaparin Sodium 40 mg 05/08/19 10:00 05/08/19 10:24 Lovenox - SQ 40 mg DAILY JORJE Administration Sodium Chloride 1,000 mls @ 83 mls/hr 05/08/19 04:15 05/09/19 07:02 Normal Saline - IV Not Given ASDIR JORJE Insulin Aspart 1 vial 05/08/19 22:00 05/09/19 07:02 Novolog Vial Sliding Scale - SQ Not Given ACHS [facility] Protocol Vital Signs (last) Temp Pulse Resp BP Pulse Ox 99.1 F 110 H 18 128/74 100 05/09/19 06:16 05/09/19 06:16 05/09/19 06:16 05/09/19 06:16 05/08/19 21:00 ASSESSMENT AND PLAN Crystal Franks is a 39 year old female with right knee pain and atraumatic knee effusion. Her right knee was aspirated yesterday; 35 mL of clear, straw colored fluid obtained and sent for analysis. Low suspicion for septic arthritis based on results thus far. Her left knee signs and symptoms have significantly improved after knee aspiration performed on 05/03/2019 at [facility]. Culture results of left knee ([facility]) report no growth. - No orthopedic surgical intervention at this time. - AM labs pending - FU right knee synovial fluid results: culture, gram stain; cell count 28k, crystals negative. - WBAT - ID/Rheumatology consult appreciated - Pain control - DVT prophylaxis - Ice/Elevation right knee - Appreciate medical management - Physical therapy to improve range of motion; do not put pillow behind the knee - Nutrition optimization, decubitus precautions heel/sacrum All questions were answered. Thank you for involving our team in the care of this patient. Please have the patient follow up in our office in 1-2 weeks. Please call us at [phone] with questions.
[2019-05-09 07:59] LABS: INR 1.26 (0.83-1.09); PROTHROMBIN TIME (PATIENT) 14.9 SEC (9.7-13.0)
[2019-05-09 08:00] LABS: BASO % 0.6 % (0-2.0); EOS % 1.1 % (0-4.5); HEMATOCRIT 31.6 % (32.4-45.2); HEMOGLOBIN 10.9 GM/dL (10.7-15.3); LYMPH % 14.5 % (8-40); MCH 30.5 pg (25.7-33.7); MCHC 34.4 g/dl (32.0-36.0); MEAN CELL VOLUME 88.7 fl (80-96); MEAN PLT VOLUME 8.1 fl (7.5-11.1); MONO % 6.3 % (3.8-10.2); NEUT % 77.5 % (42.8-82.8); PLATELET COUNT 608 K/MM3 (134-434); RBC 3.56 M/mm3 (3.60-5.2); RDW 13.1 % (11.6-15.6); WHITE BLOOD COUNT 10.3 K/mm3 (4.0-10.0)
[2019-05-09 08:57] LABS: ALBUMIN 2.7 g/dl (3.4-5.0); BILIRUBIN,TOTAL 0.8 mg/dL (0.2-1); BLOOD UREA NITROGEN 12.3 mg/dL (7-18); CALCIUM 9.6 mg/dL (8.5-10.1); CREATININE 0.7 mg/dL (0.55-1.3); MAGNESIUM 1.2 mg/dL (1.8-2.4); PHOSPHOROUS 2.6 mg/dL (2.5-4.9); TOT PROT 7.3 g/dl (6.4-8.2)
[2019-05-09] MEDS ORDERED: MAGNESIUM SULF 50% (8.12 MEQ/2 ML-1 GM VIAL) IVPB ONE (09:15)
--- NOTE | 2019-05-09 09:42 | PN ---
Teaching Attending Note Name of Resident: Silvana Seymour ATTENDING PHYSICIAN STATEMENT I saw and evaluated the patient. I reviewed the resident's note and discussed the case with the resident. I agree with the resident's findings and plan as documented. SUBJECTIVE: Patient is slightely better but unable to ambulate. Vital Signs Temperature 99.1 F 05/09/19 06:16 Pulse Rate 110 H 05/09/19 06:16 Respiratory Rate 18 05/09/19 06:16 Blood Pressure 128/74 05/09/19 06:16 O2 Sat by Pulse Oximetry (%) 100 05/08/19 21:00 GENERAL: The patient is awake, alert, and fully oriented, in no acute distress. HEAD: Normal with no signs of trauma. EYES: PERRL, extraocular movements intact, sclera anicteric, conjunctiva clear. ENT: Ears normal, oropharynx clear without exudates, moist mucous membranes. NECK: Trachea midline, full range of motion, supple. LUNGS: Breath sounds equal, clear to auscultation bilaterally, no wheezes, no crackles, no accessory muscle use. HEART: Regular rate and rhythm, S1, S2 without murmur, rub or gallop. ABDOMEN: Soft, nontender, nondistended, normoactive bowel sounds, no guarding, no rebound, no hepatosplenomegaly, no masses. EXTREMITIES: 2+ pulses, warm, well-perfused, Right knee swelling >left knee, improved s/p knee aspiration NEUROLOGICAL: Cranial nerves II through XII grossly intact. Normal speech, gait not observed. PSYCH: Normal mood, normal affect. SKIN: Warm, dry, normal turgor, no rashes or lesions noted CBCD WBC 10.3 K/mm3 (4.0-10.0) H 05/09/19 07:25 RBC 3.56 M/mm3 (3.60-5.2) L 05/09/19 07:25 Hgb 10.9 GM/dL (10.7-15.3) 05/09/19 07:25 Hct 31.6 % (32.4-45.2) L 05/09/19 07:25 MCV 88.7 fl (80-96) 05/09/19 07:25 MCHC 34.4 g/dl (32.0-36.0) 05/09/19 07:25 RDW 13.1 % (11.6-15.6) 05/09/19 07:25 Plt Count 608 K/MM3 (134-434) H 05/09/19 07:25 MPV 8.1 fl (7.5-11.1) 05/09/19 07:25 CMP Sodium 138 mmol/L (136-145) 05/09/19 07:25 Potassium 4.0 mmol/L (3.5-5.1) 05/09/19 07:25 Chloride 98 mmol/L (98-107) 05/09/19 07:25 Carbon Dioxide 33 mmol/L (21-32) H 05/09/19 07:25 Anion Gap 7 MMOL/L (8-16) L 05/09/19 07:25 BUN 12.3 mg/dL (7-18) 05/09/19 07:25 Creatinine 0.7 mg/dL (0.55-1.3) 05/09/19 07:25 Random Glucose 125 mg/dL (74-106) H 05/09/19 07:25 Calcium 9.6 mg/dL (8.5-10.1) 05/09/19 07:25 Total Bilirubin 0.8 mg/dL (0.2-1) 05/09/19 07:25 AST 95 U/L (15-37) H 05/09/19 07:25 ALT 128 U/L (13-61) H 05/09/19 07:25 Alkaline Phosphatase 242 U/L (45-117) H 05/09/19 07:25 Total Protein 7.3 g/dl (6.4-8.2) 05/09/19 07:25 Albumin 2.7 g/dl (3.4-5.0) L 05/09/19 07:25 CARDIAC ENZYMES Creatine Kinase 71 U/L (26-192) 05/08/19 00:20 Generic Name Dose Route Start Last Admin Trade Name Trang PRN Reason Stop Dose Admin Enoxaparin Sodium 40 mg 05/08/19 10:00 05/08/19 10:24 Lovenox - SQ 40 mg DAILY JORJE Administration Sodium Chloride 1,000 mls @ 83 mls/hr 05/08/19 04:15 05/09/19 07:02 Normal Saline - IV Not Given ASDIR JORJE Insulin Aspart 1 vial 05/08/19 22:00 05/09/19 07:02 Novolog Vial Sliding Scale - SQ Not Given ACHS JORJE Protocol Home Medications Medication Instructions Recorded Ibuprofen 400 mg PO Q6H PRN 05/08/19 ASSESSMENT AND PLAN: Patient is a 39yof with no significant pMhx presents with b/l knee pain x 5 days. patient was at [facility] 5days ago where her left knee was drained and was told that she has a bursitis. was prescribed Ibuprofen, which was not relieved the pain. # leukocytosis- of uncelar etiology - calderon cx , lyme titer , pending w/u # bilateral knee pain and swelling- not septic arthritis, will stop the antibiotic , ortho consult , dr rivera for consult , xrays of both reviewed, lyme serology was ordered, will try to get the medical records from [facility] #hiv negative #transaminitis: U/S reported possible diffuse hepatic steatosis, trending down , check hep serology #Acute hyponatremia: will hydrate the patient with IVF NS #hypomagnesemia: replete and monitor #hypokalemia: replete and monitor #T2DM: A1C 6.9, SSI, GMs, lifestyle modification DVT Px: lovenox -spep ordered.
[2019-05-09] MEDS: ENOXAPARIN NA (PORCINE) 40 MG/0.4 ML DISP.SYRIN SQ SCH (10:32)
[2019-05-09] MEDS ORDERED: INSULIN (NOVOLOG) ASPART 100 UNITS/ML 10ML VIAL ONE (11:46)
[2019-05-09] MEDS ORDERED: SODIUM CHLORIDE 1,000 ML IV SCH ×2 (12:56→18:31)
[2019-05-09] MEDS ORDERED: CELECOXIB 200 MG CAPSULE PO ONE (13:15)
--- NOTE | 2019-05-09 14:05 | PN ---
Physical Exam: SUBJECTIVE: Patient seen and examined. She reports b/l knee pain is improved. right is 5/10 and left is 3/10. She denies fever, chills, chest pain, palpitations, shortness of breath, nausea, or vomiting. OBJECTIVE: Vital Signs Period Temp Pulse Resp BP Sys/Urrutia Pulse Ox Last 24 Hr 98.2 F-99.3 F 107-116 18-18 107-128/59-82 100-100 GENERAL: The patient is awake, alert, and fully oriented, in no acute distress. HEAD: Normal with no signs of trauma. EYES: PERRL, extraocular movements intact, conjunctiva clear. ENT: Ears normal, nares patent, moist mucous membranes. NECK: Trachea midline, full range of motion LUNGS: Clear to auscultation bilaterally, no wheezes, no crackles, no accessory muscle use. HEART: Tachycardic, regular rhythm, no murmur ABDOMEN: Soft, nontender, nondistended, normoactive bowel sounds EXTREMITIES: Warm, well-perfused, slight edema b/l knees, no erythema, right knee slightly warm to touch with band-aid post drainage NEUROLOGICAL: Cranial nerves II through XII grossly intact. Normal speech, gait not observed. PSYCH: Normal mood, normal affect. SKIN: Warm, dry, normal turgor Laboratory Results - last 24 hr 05/08/19 05/08/19 05/08/19 05:30 18:53 18:53 WBC RBC Hgb Hct MCV MCH MCHC RDW Plt Count MPV Absolute Neuts (auto) Neutrophils % Lymphocytes % Monocytes % Eosinophils % Basophils % Nucleated RBC % PT with INR INR Sodium Potassium Chloride Carbon Dioxide Anion Gap BUN Creatinine Est GFR (CKD-EPI)AfAm Est GFR (CKD-EPI)NonAf POC Glucometer Random Glucose Calcium Phosphorus Magnesium Total Bilirubin AST ALT Alkaline Phosphatase Total Protein Albumin TSH Synovial Source Knee Synovial WBC 77285 Synovial RBC 6774 Synovial Neutrophils 81 Synovial Lymphocytes 10 Synovial Monocytes 8 Synovial Histocytes No Result Required. Synovial Plasma Cells No Result Required. Synovial LE Cells No Result Required. Synovial Macrophages 1 Synovial Other Cells No Result Required. Synovial Diff Comment No Result Required. Synovial Crystals Negative Hep A IgM Ab Confirm Negative Hep Bs Antigen Negative Hep B Core IgM Ab Negative Hepatitis C Ab (EIA) <0.1 05/08/19 05/09/19 05/09/19 21:43 06:59 07:25 WBC 10.3 H RBC 3.56 L Hgb 10.9 Hct 31.6 L MCV 88.7 MCH 30.5 MCHC 34.4 RDW 13.1 Plt Count 608 H MPV 8.1 Absolute Neuts (auto) 8.0 Neutrophils % 77.5 Lymphocytes % 14.5 Monocytes % 6.3 Eosinophils % 1.1 Basophils % 0.6 Nucleated RBC % 0 PT with INR INR Sodium Potassium Chloride Carbon Dioxide Anion Gap BUN Creatinine Est GFR (CKD-EPI)AfAm Est GFR (CKD-EPI)NonAf POC Glucometer 172 128 Random Glucose Calcium Phosphorus Magnesium Total Bilirubin AST ALT Alkaline Phosphatase Total Protein Albumin TSH Synovial Source Synovial WBC Synovial RBC Synovial Neutrophils Synovial Lymphocytes Synovial Monocytes Synovial Histocytes Synovial Plasma Cells Synovial LE Cells Synovial Macrophages Synovial Other Cells Synovial Diff Comment Synovial Crystals Hep A IgM Ab Confirm Hep Bs Antigen Hep B Core IgM Ab Hepatitis C Ab (EIA) 05/09/19 05/09/19 05/09/19 07:25 07:25 11:14 WBC RBC Hgb Hct MCV MCH MCHC RDW Plt Count MPV Absolute Neuts (auto) Neutrophils % Lymphocytes % Monocytes % Eosinophils % Basophils % Nucleated RBC % PT with INR 14.90 H INR 1.26 H Sodium 138 Potassium 4.0 Chloride 98 Carbon Dioxide 33 H Anion Gap 7 L BUN 12.3 Creatinine 0.7 Est GFR (CKD-EPI)AfAm 125.61 Est GFR (CKD-EPI)NonAf 108.38 POC Glucometer 194 Random Glucose 125 H Calcium 9.6 Phosphorus 2.6 Magnesium 1.2 L Total Bilirubin 0.8 AST 95 H ALT 128 H Alkaline Phosphatase 242 H Total Protein 7.3 Albumin 2.7 L TSH 1.08 Synovial Source Synovial WBC Synovial RBC Synovial Neutrophils Synovial Lymphocytes Synovial Monocytes Synovial Histocytes Synovial Plasma Cells Synovial LE Cells Synovial Macrophages Synovial Other Cells Synovial Diff Comment Synovial Crystals Hep A IgM Ab Confirm Hep Bs Antigen Hep B Core IgM Ab Hepatitis C Ab (EIA) Active Medications Generic Name Dose Route Start Last Admin Trade Name Freq PRN Reason Stop Dose Admin Enoxaparin Sodium 40 mg 05/08/19 10:00 05/09/19 10:32 Lovenox - SQ 40 mg DAILY JORJE Administration Sodium Chloride 1,000 mls @ 200 mls/hr 05/09/19 12:56 05/09/19 13:15 Normal Saline - IV 200 mls/hr ASDIR JORJE Administration Insulin Aspart 1 vial 05/08/19 22:00 05/09/19 11:47 Novolog Vial Sliding Scale - SQ 2 unit ACHS JORJE Administration Protocol Metformin HCl 500 mg 05/10/19 13:15 Glucophage Xr - PO DAILY@0700 [facility] ASSESSMENT/PLAN: Ms. Franks is a 39y/o female with no significant PMH who presents with b/l knee pain. She reports having left knee drained about 5 days ago and was diagnosed with bursitis at [facility]. She was given Ibuprofen and pain and swelling did not improve. #bilateral inflammatory knee arthropathy -leukocytosis improving -HIV negative -RPR negative -rheum factor and BISHNU negative -Lyme test negative -chlamydia/gonorrhea pending -anti-DNase pending -b/l knee x-rays- no significant findings -ortho drained 35mL synovial fluid from right knee yesterday, WBC 25k -rheum consulted- unlikely reactive arthritis -ID consulted -Celebrex 200mg daily #tachycardia -pt denies palpitations -normotensive -NS 200mL/hr -monitor #transaminitis, improving -hep panel negative -U/S- possible diffuse hepatic steatosis #hypomagnesemia -replete and monitor #hypokalemia, resolved #DM -A1C 6.9 -SSI -BGMs -starting Metformin XR 500mg daily -f/u out pt DVT Ppx lovenox FEN NS 83mL/hr monitor K and Mg diabetic diet dispo med/surg Visit type - Emergency Visit Emergency Visit: Yes ED Registration Date: 05/08/19 Care time: The patient presented to the Emergency Department on the above date and was hospitalized for further evaluation of their emergent condition. - New Patient This patient is new to me today: No - Critical Care Critical Care patient: No - Discharge Referral Referred to [facility] Med P.C.: No ATTENDING PHYSICIAN STATEMENT I saw and evaluated the patient. I reviewed the resident's note and discussed the case with the resident. I agree with the resident's findings and plan as documented. SUBJECTIVE: OBJECTIVE: ASSESSMENT AND PLAN:
[2019-05-09] MEDS ORDERED: PT OWN MED DRAWER 7, Y5N ONE (14:48)
[2019-05-09] MEDS ORDERED: ACETAMINOPHEN 1000 MG/100 ML VIAL (NON FORMULARY) IVPB ONE (14:53)
[2019-05-09] MEDS ORDERED: SODIUM CHLORIDE 500 ML IV SCH (15:00)
[2019-05-10] MEDS: INSULIN SLIDING SCALE (NOVOLOG) 1 VIAL SQ SCH ×4 (06:04→21:14)
[2019-05-10 08:49] LABS: HEMATOCRIT 29.7 % (32.4-45.2); HEMOGLOBIN 10.1 GM/dL (10.7-15.3); MCH 30.3 pg (25.7-33.7); MCHC 34.2 g/dl (32.0-36.0); MEAN CELL VOLUME 88.6 fl (80-96); MEAN PLT VOLUME 8.2 fl (7.5-11.1); PLATELET COUNT 570 K/MM3 (134-434); RBC 3.35 M/mm3 (3.60-5.2); RDW 13.1 % (11.6-15.6); WHITE BLOOD COUNT 9.4 K/mm3 (4.0-10.0)
[2019-05-10 09:34] LABS: ALBUMIN 2.5 g/dl (3.4-5.0); BILIRUBIN,TOTAL 0.5 mg/dL (0.2-1); BLOOD UREA NITROGEN 8.1 mg/dL (7-18); CALCIUM 8.9 mg/dL (8.5-10.1); CREATININE 0.6 mg/dL (0.55-1.3); MAGNESIUM 1.2 mg/dL (1.8-2.4); POTASSIUM 3.7 mmol/L (3.5-5.1)
[2019-05-10] MEDS ORDERED: CELECOXIB 200 MG CAPSULE PO SCH (10:00)
[2019-05-10] MEDS ORDERED: PT OWN MED DRAWER 7, Y5N ONE ×2 (10:21→15:41)
[2019-05-10] MEDS: ENOXAPARIN NA (PORCINE) 40 MG/0.4 ML DISP.SYRIN SQ SCH (10:25)
[2019-05-10] MEDS ORDERED: INSULIN (NOVOLOG) ASPART 100 UNITS/ML 10ML VIAL ONE (13:35)
[2019-05-10] MEDS: PANTOPRAZOLE 40 MG TABLET PO SCH (14:56)
--- NOTE | 2019-05-10 15:28 | PN ---
Progress Note (short form) - Note Progress Note: feels improved, oob with assistance today Vital Signs Period Temp Pulse Resp BP Sys/Urrutia Pulse Ox Last 24 Hr 98.5 F-100.5 F 97-119 18-20 112-121/62-72 100 cor-rrr lungs clear abd soft,nt ext less knee swelling CBC, BMP 05/10/19 08:20 05/10/19 08:20 Microbiology 05/08/19 10:00 Blood - Peripheral Venous Blood Culture - Preliminary NO GROWTH OBTAINED AFTER 48 HOURS, INCUBATION TO CONTINUE FOR 3 DAYS. 05/08/19 18:53 Synovial Fluid - Knee Gram Stain - Final 05/08/19 18:53 Synovial Fluid - Knee Body Fluid Culture - Preliminary NO AEROBIC GROWTH, 24 HRS 05/08/19 05:30 Blood - Peripheral Venous Blood Culture - Preliminary NO GROWTH OBTAINED AFTER 48 HOURS, INCUBATION TO CONTINUE FOR 3 DAYS. 05/08/19 10:15 Urine - Urine Clean Catch Urine Culture - Final Normal Urogenital Olya a/p reactive arthritis leukocytosis- resolved lfts trending down hiv negative lyme serology negative observe off antibiotics f/u serologies
[2019-05-10] MEDS ORDERED: MAGNESIUM SULF 50% (8.12 MEQ/2 ML-1 GM VIAL) IVPB ONE (15:29)
--- NOTE | 2019-05-10 15:56 | PN ---
Physical Exam: SUBJECTIVE: Patient seen and examined. She reports some improvement in pain. Left knee has no pain, right knee is 5/10. She denies chest pain, palpitations, shortness of breath, n/v/d. No fever after 100.5 yesterday afternoon. OBJECTIVE: Vital Signs Period Temp Pulse Resp BP Sys/Urrutia Pulse Ox Last 24 Hr 98.5 F-100.5 F 97-119 18-20 112-121/62-72 100 GENERAL: The patient is awake, alert, and fully oriented, in no acute distress. HEAD: Normal with no signs of trauma. EYES: PERRL, extraocular movements intact, conjunctiva clear. ENT: Ears normal, nares patent, moist mucous membranes. NECK: Trachea midline, full range of motion LUNGS: Clear to auscultation bilaterally, no wheezes, no crackles, no accessory muscle use. HEART: Tachycardic, regular rhythm, no murmur ABDOMEN: Soft, nontender, nondistended, normoactive bowel sounds EXTREMITIES: Warm, well-perfused, slight edema b/l knees, no erythema, 3/5 right knee extension, 5/5 left knee extension, sensation grossly intact NEUROLOGICAL: Cranial nerves II through XII grossly intact. Normal speech, gait not observed. PSYCH: Normal mood, normal affect. SKIN: Warm, dry, normal turgor Laboratory Results - last 24 hr 05/08/19 05/08/19 05/09/19 05:30 05:30 17:33 WBC RBC Hgb Hct MCV MCH MCHC RDW Plt Count MPV Sodium Potassium Chloride Carbon Dioxide Anion Gap BUN Creatinine Est GFR (CKD-EPI)AfAm Est GFR (CKD-EPI)NonAf POC Glucometer 130 Random Glucose Calcium Magnesium Total Bilirubin AST ALT Alkaline Phosphatase Total Protein Albumin BISHNU Screen Positive H BISHNU Homogeneous Pattern TNP BISHNU Nucleolar Pattern TNP BISHNU Spindle Chantal Pattern TNP BISHNU Midbody Pattern 1:80 BISHNU Centriole Pattern TNP BISHNU Nuclear Dot Pattern TNP BISHNU PCNA Pattern TNP BISHNU Nuclear Membr Pat TNP BISHNU Speckled Pattern 1:80 BISHNU Centromere Pattern TNP Lyme Screen IgG & IgM <0.91 05/09/19 05/10/19 05/10/19 22:15 05:37 08:20 WBC 9.4 RBC 3.35 L Hgb 10.1 L Hct 29.7 L MCV 88.6 MCH 30.3 MCHC 34.2 RDW 13.1 Plt Count 570 H MPV 8.2 Sodium Potassium Chloride Carbon Dioxide Anion Gap BUN Creatinine Est GFR (CKD-EPI)AfAm Est GFR (CKD-EPI)NonAf POC Glucometer 142 117 Random Glucose Calcium Magnesium Total Bilirubin AST ALT Alkaline Phosphatase Total Protein Albumin BISHNU Screen BISHNU Homogeneous Pattern BISHNU Nucleolar Pattern BISHNU Spindle Chantal Pattern BISHNU Midbody Pattern BISHNU Centriole Pattern BISHNU Nuclear Dot Pattern BISHNU PCNA Pattern BISHNU Nuclear Membr Pat BISHNU Speckled Pattern BISHNU Centromere Pattern Lyme Screen IgG & IgM 05/10/19 05/10/19 08:20 11:38 WBC RBC Hgb Hct MCV MCH MCHC RDW Plt Count MPV Sodium 138 Potassium 3.7 Chloride 98 Carbon Dioxide 34 H Anion Gap 7 L BUN 8.1 Creatinine 0.6 Est GFR (CKD-EPI)AfAm 132.14 Est GFR (CKD-EPI)NonAf 114.01 POC Glucometer 223 Random Glucose 113 H Calcium 8.9 Magnesium 1.2 L Total Bilirubin 0.5 AST 56 H ALT 100 H Alkaline Phosphatase 211 H Total Protein 7.0 Albumin 2.5 L BISHNU Screen BISHNU Homogeneous Pattern BISHNU Nucleolar Pattern BISHNU Spindle Chantal Pattern BISHNU Midbody Pattern BISHNU Centriole Pattern BISHNU Nuclear Dot Pattern BISHNU PCNA Pattern BISHNU Nuclear Membr Pat BISHNU Speckled Pattern BISHNU Centromere Pattern Lyme Screen IgG & IgM Active Medications Generic Name Dose Route Start Last Admin Trade Name Freq PRN Reason Stop Dose Admin Enoxaparin Sodium 40 mg 05/08/19 10:00 05/10/19 10:25 Lovenox - SQ 40 mg DAILY JORJE Administration Insulin Aspart 1 vial 05/08/19 22:00 05/10/19 13:37 Novolog Vial Sliding Scale - SQ 4 unit ACHS JORJE Administration Protocol Magnesium Sulfate 2 gm 05/10/19 15:29 Magnesium Sulfate IVPB 05/10/19 15:30 ONCE ONE Metformin HCl 500 mg 05/10/19 10:00 05/10/19 12:26 Glucophage Xr - PO 500 mg DAILY@0700 JORJE Administration Naproxen 500 mg 05/10/19 22:00 Naprosyn - PO BID JORJE Pantoprazole Sodium 40 mg 05/10/19 14:00 05/10/19 14:56 Protonix - PO 40 mg DAILY JORJE Administration ASSESSMENT/PLAN: Ms. Franks is a 39y/o female with no significant PMH who presents with b/l knee pain. She reports having left knee drained about 5 days ago and was diagnosed with bursitis at [facility]. She was given Ibuprofen and pain and swelling did not improve. #bilateral inflammatory knee arthropathy, cannot r/o reactive arthritis -leukocytosis resolved -HIV negative -RPR negative -rheum factor negative -Lyme test negative -BISHNU positive -chlamydia/gonorrhea pending -anti-DNase pending -b/l knee x-rays- no significant findings -ortho drained 35mL synovial fluid from right knee, WBC 25k -rheum consulted -ID following -naproxen 500mg BID -protonix 40mg daily for GI Ppx #tachycardia -from infection? -pt denies palpitations -given fluids yesterday with some improvement -normotensive -monitor #transaminitis, improving -hep panel negative -U/S- possible diffuse hepatic steatosis #hypomagnesemia -replete and monitor #DM -A1C 6.9 -SSI -BGMs -starting Metformin XR 500mg daily -f/u out pt #hypokalemia, resolved DVT Ppx lovenox FEN PO fluids monitor K and Mg diabetic diet dispo med/surg f/u serology and monitor for improvement in pain Visit type - Emergency Visit Emergency Visit: Yes ED Registration Date: 05/08/19 Care time: The patient presented to the Emergency Department on the above date and was hospitalized for further evaluation of their emergent condition. - New Patient This patient is new to me today: No - Critical Care Critical Care patient: No - Discharge Referral Referred to [facility] Med P.C.: No ATTENDING PHYSICIAN STATEMENT I saw and evaluated the patient. I reviewed the resident's note and discussed the case with the resident. I agree with the resident's findings and plan as documented. SUBJECTIVE: OBJECTIVE: ASSESSMENT AND PLAN:
--- NOTE | 2019-05-10 20:17 | PN ---
Teaching Attending Note Name of Resident: Silvana Seymour ATTENDING PHYSICIAN STATEMENT I saw and evaluated the patient. I reviewed the resident's note and discussed the case with the resident. I agree with the resident's findings and plan as documented. SUBJECTIVE: No fever or chills. knees feel better OBJECTIVE: NAd Cv : RRr Lungs: CATB ext : No edema or erythema . small suprapatellar effusion on R . ASSESSMENT AND PLAN: Patient is a 39yof with no significant pMhx presents with b/l knee pain x 5 days. 1- Knee pain and effusion . possible reactive arthritis . fluid cx pending. synovial fluid analysis reviewed. - lyme neg - follow CT/GC. follow ASLO - change celebrex to naproxen and add PPI 2- Transaminitis : not clear why, could be due to heaptic steatosis. no other pathologyon US. improved . 3- DM : cont metformin dispo: possible dc tomorrow
[2019-05-10] MEDS: NAPROXEN 500 MG TABLET PO SCH (21:11)
[2019-05-11 06:07] LABS: ANTI-DNAse B 729 U/mL (0-120)
[2019-05-11] MEDS: INSULIN SLIDING SCALE (NOVOLOG) 1 VIAL SQ SCH ×3 (06:28→17:33)
[2019-05-11 09:12] LABS: ALBUMIN 2.5 g/dl (3.4-5.0); BILIRUBIN,DIRECT 0.2 mg/dL (0.0-0.2); BILIRUBIN,TOTAL 0.4 mg/dL (0.2-1); MAGNESIUM 1.2 mg/dL (1.8-2.4); TOT PROT 6.8 g/dl (6.4-8.2)
[2019-05-11] MEDS: PENICILLIN V POTASSIUM 500 MG TABLET PO SCH ×2 (11:32→18:19)
[2019-05-11] MEDS: PANTOPRAZOLE 40 MG TABLET PO SCH (11:33)
[2019-05-11] MEDS: DOXYCYCLINE HYCLATE 100 MG CAPSULE PO SCH ×2 (11:33→18:20)
[2019-05-11] MEDS: ENOXAPARIN NA (PORCINE) 40 MG/0.4 ML DISP.SYRIN SQ SCH (11:33)
[2019-05-11] MEDS ORDERED: PT OWN MED DRAWER 7, Y5N ONE ×4 (11:45→18:28)
--- NOTE | 2019-05-11 11:48 | EKG ---
Test Reason : Blood Pressure : / mmHG Vent. Rate : 092 BPM Atrial Rate : 092 BPM P-R Int : 162 ms QRS Dur : 082 ms QT Int : 366 ms P-R-T Axes : 041 008 027 degrees QTc Int : 452 ms NORMAL SINUS RHYTHM NORMAL ECG WHEN COMPARED WITH ECG OF 08-MAY-2019 01:31, NO SIGNIFICANT CHANGE WAS FOUND Confirmed by AILNY ROSE MD ([id number]) on 05/11/2019 11:47:56 AM Referred By: GUILLE AZEVEDO DRFLCayetano Confirmed By:AILYN ROSE MD
[2019-05-11] MEDS: NAPROXEN 500 MG TABLET PO SCH (11:50)
--- NOTE | 2019-05-11 13:48 | PN ---
Progress Note (short form) - Note Progress Note: The patient reports minimal tenderness in knees and today she developed pain in the dorsum of the right hand. She has not have fever furing this admission. She is on Naproxen 500 mg BID. Laboratory work-up: CBC: WBC improved from 16.1 to 9.4. ASLO 699.8 (N<200), anti-DNAaseB 729 (N<120). C. trachomatis JOSEPH positive ( source: uriune?). Synovial fluid of the right knee: WBC: 96946, N:81, LL:10 and M: 8. P/E Lungs clear, S1 and S2 normal with no gallop and no murmur. MSK: No active joints. Tenderness in the dorsum of the right hand, however wrist and MCPs were normal. 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 Surprisingly C Trachomatis JOSEPH was positive , cannot rule out reactive arthritis. Patient improved significantly. As per discussion with Dr. Rae she will treat with Penicillin and Doxycyclin. Echocardiogram was requested. The patient should continue with Naproxen 500 mg BID and at the present time there is no indication for further treatment for arthritis, Problem List - Problems (1) Inflammatory polyarthropathy Code(s): M06.4 - INFLAMMATORY POLYARTHROPATHY
--- NOTE | 2019-05-11 14:00 | ECHO ---
Name: JENI PAREDES Exam:Adult Echocardiogram Study Date: 05/11/2019 10:39 AM Age: 39 yrs Height: 62 in Weight: 164 lb BSA: 1.8 m2 MMode/2D Measurements & Calculations IVSd: 0.90 cm Ao root diam: 2.4 cm LVIDd: 3.3 cm LA dimension: 2.8 cm LVIDs: 2.0 cm ACS: 2.0 cm LVPWd: 1.1 cm EDV(Teich): 42.8 ml LVOT diam: 2.0 cm ESV(Teich): 13.5 ml RV S Danny: 17.6 cm/sec Doppler Measurements & Calculations MV E max danny: 47.4 cm/sec Ao V2 max: 109.4 cm/sec MV A max danny: 70.6 cm/sec Ao max P.8 mmHg MV E/A: 0.67 Ao V2 mean: 80.0 cm/sec MV dec time: 0.10 sec Ao mean P.8 mmHg Ao V2 VTI: 19.2 cm SHAHEEN(I,D): 2.7 cm2 SHAHEEN(V,D): 2.1 cm2 LV V1 max P.0 mmHg SV(LVOT): 52.5 ml LV V1 mean P.4 mmHg LV V1 max: 70.6 cm/sec LV V1 mean: 58.9 cm/sec LV V1 VTI: 16.4 cm TR max danny: 228.0 cm/sec PA V2 max: 64.2 cm/sec TR max P.5 mmHg PA max P.6 mmHg Med Peak E' Danny: 14.9 cm/sec Med E/e': 3.2 Lat Peak E' Danny: 8.5 cm/sec Lat E/e': 5.6 Procedure A complete two-dimensional transthoracic echocardiogram was performed (2D, M-mode, Doppler and color flow Doppler). Left Ventricle The left ventricular size, thickness and function are normal. The left ventricular ejection fraction is normal. Ejection Fraction = 60-65%. The left ventricular wall motion is normal. Right Ventricle The right ventricle is normal in size and function. Atria Normal left and right atrial size and function. Mitral Valve There is no mitral regurgitation noted. Tricuspid Valve There is trace tricuspid regurgitation. Right ventricular systolic pressure is normal. Aortic Valve The aortic valve is trileaflet. No hemodynamically significant valvular aortic stenosis. No aortic regurgitation is present. Pulmonic Valve There is no pulmonic valvular regurgitation. Great Vessels The aortic root is normal size. Pericardium/Pleura There is no pericardial effusion. Interpretation Summary The left ventricular size, thickness and function are normal The right ventricle is normal in size and function. There is trace tricuspid regurgitation. MD Dennys Turcios 05/11/2019 01:59 PM
--- NOTE | 2019-05-11 14:51 | PN ---
Progress Note (short form) - Note Progress Note: feels improved denies prior history of pharyngitis Vital Signs Period Temp Pulse Resp BP Sys/Urrutia Pulse Ox Last 24 Hr 98.4 F-99.5 F 92-109 18-20 108-117/65-72 cor-rrr lungs clear abd soft,nt ext knees no swelling CBC, BMP 05/10/19 08:20 05/10/19 08:20 Microbiology 05/08/19 18:53 Synovial Fluid - Knee Gram Stain - Final 05/08/19 18:53 Synovial Fluid - Knee Body Fluid Culture - Final NO GROWTH OF AEROBIC ORGANISMS AFTER 48 HOURS INCUBATION 05/08/19 18:53 Synovial Fluid - Knee Anaerobic Culture - Final NO ANAEROBES WERE ISOLATED 05/08/19 10:00 Blood - Peripheral Venous Blood Culture - Preliminary NO GROWTH OBTAINED AFTER 72 HOURS, INCUBATION TO CONTINUE FOR 2 DAYS. 05/08/19 05:30 Blood - Peripheral Venous Blood Culture - Preliminary NO GROWTH OBTAINED AFTER 72 HOURS, INCUBATION TO CONTINUE FOR 2 DAYS. 05/08/19 10:15 Urine - Urine Clean Catch Urine Culture - Final Normal Urogenital Olya Laboratory Tests 05/08/19 05/09/19 05/09/19 10:15 07:25 16:15 C. trachomatis (JOSEPH) Positive H Anti-Streptolysin Scrn 699.8 H Anti-DNase B (Strep) 729 H a/p reactive arthritis- +chlamydia, +aso and antidnase b d/w dr rivera, d/w dr perea ?secondary to chlamydia or post strep- she doesnot recollect a prior pharyngitis -no signs/symptoms of ARF plan doxycycline 100 mg po bid for 7 days penvk 500 tid for 10 days throat culture sent echo wnl leukocytosis- resolved lfts trending down hiv negative lyme serology negative please call back if needed
--- NOTE | 2019-05-11 15:21 | PN ---
Physical Exam: SUBJECTIVE: Patient seen and examined OBJECTIVE: Vital Signs Period Temp Pulse Resp BP Sys/Urrutia Pulse Ox Last 24 Hr 98.4 F-99.5 F 92-109 18-20 108-117/65-72 GENERAL: The patient is awake, alert, and fully oriented, in no acute distress. HEAD: Normal with no signs of trauma. EYES: PERRL, extraocular movements intact, sclera anicteric, conjunctiva clear. No ptosis. ENT: Ears normal, nares patent, oropharynx clear without exudates, moist mucous membranes. NECK: Trachea midline, full range of motion, supple. LUNGS: Breath sounds equal, clear to auscultation bilaterally, no wheezes, no crackles, no accessory muscle use. HEART: Regular rate and rhythm, S1, S2 without murmur, rub or gallop. ABDOMEN: Soft, nontender, nondistended, normoactive bowel sounds, no guarding, no rebound, no hepatosplenomegaly, no masses. EXTREMITIES: 2+ pulses, warm, well-perfused, no edema. NEUROLOGICAL: Cranial nerves II through XII grossly intact. Normal speech, gait not observed. PSYCH: Normal mood, normal affect. SKIN: Warm, dry, normal turgor, no rashes or lesions noted Laboratory Results - last 24 hr 05/08/19 05/08/19 05/09/19 00:20 10:15 07:25 POC Glucometer Magnesium Total Bilirubin Direct Bilirubin AST ALT Alkaline Phosphatase Total Protein Albumin Lyme IgM 23 kDa Band No Result Required. Lyme IgM 39 kDa Band No Result Required. Lyme IgM 41 kDa Band No Result Required. C. trachomatis (JOSEPH) Positive H N. gonorrhoeae (JOSEPH) Negative Anti-Streptolysin Scrn Anti-DNase B (Strep) 729 H 05/09/19 05/10/19 05/10/19 16:15 17:34 21:13 POC Glucometer 96 126 Magnesium Total Bilirubin Direct Bilirubin AST ALT Alkaline Phosphatase Total Protein Albumin Lyme IgM 23 kDa Band Lyme IgM 39 kDa Band Lyme IgM 41 kDa Band C. trachomatis (JOSEPH) N. gonorrhoeae (JOSEPH) Anti-Streptolysin Scrn 699.8 H Anti-DNase B (Strep) 05/11/19 05/11/19 05/11/19 05:46 07:28 11:53 POC Glucometer 105 134 Magnesium 1.2 L Total Bilirubin 0.4 Direct Bilirubin 0.2 AST 36 ALT 73 H Alkaline Phosphatase 195 H Total Protein 6.8 Albumin 2.5 L Lyme IgM 23 kDa Band Lyme IgM 39 kDa Band Lyme IgM 41 kDa Band C. trachomatis (JOSEPH) N. gonorrhoeae (JOSEPH) Anti-Streptolysin Scrn Anti-DNase B (Strep) Active Medications Generic Name Dose Route Start Last Admin Trade Name Freq PRN Reason Stop Dose Admin Doxycycline Hyclate 100 mg 05/11/19 10:00 05/11/19 11:33 Vibramycin - PO 100 mg BID@1000,1800 JORJE Administration Enoxaparin Sodium 40 mg 05/08/19 10:00 05/11/19 11:33 Lovenox - SQ 40 mg DAILY JORJE Administration Insulin Aspart 1 vial 05/08/19 22:00 05/11/19 11:59 Novolog Vial Sliding Scale - SQ Not Given ACHS [facility] Protocol Metformin HCl 500 mg 05/10/19 10:00 05/11/19 06:27 Glucophage Xr - PO 500 mg DAILY@0700 JORJE Administration Naproxen 500 mg 05/10/19 22:00 05/11/19 11:50 Naprosyn - PO 500 mg BID JORJE Administration Pantoprazole Sodium 40 mg 05/10/19 14:00 05/11/19 11:33 Protonix - PO 40 mg DAILY JORJE Administration Penicillin V Potassium 500 mg 05/11/19 09:15 05/11/19 11:32 Pen Vee K - PO 500 mg Q8H JORJE Administration ASSESSMENT/PLAN: ATTENDING PHYSICIAN STATEMENT I saw and evaluated the patient. I reviewed the resident's note and discussed the case with the resident. I agree with the resident's findings and plan as documented. SUBJECTIVE: OBJECTIVE: ASSESSMENT AND PLAN:
[2019-05-11] MEDS ORDERED: PENICILLIN V POTASSIUM 500 MG TABLET PO ONE (17:28)
[2019-05-11] MEDS ORDERED: MAGNESIUM OXIDE 400 MG TABLET (FP) PO ONE (17:40)
--- NOTE | 2019-05-11 17:40 | PN ---
Teaching Attending Note Name of Resident: Silvana Seymour ATTENDING PHYSICIAN STATEMENT I saw and evaluated the patient. I reviewed the resident's note and discussed the case with the resident. I agree with the resident's findings and plan as documented. SUBJECTIVE: no fever or chills. No pain in knees today. was able to ambulate. no N/v . No abd pain. has pain in R hand joints OBJECTIVE: NAD, facial hair Cv : RRR Lungs: CATB Ext : No edema or erythema. no erythema over knees. slight soft tissue prominance in suprapatellar area but no effusion detected tenderness over the MCP joints in R hand. No erythema. can make a fist. ASSESSMENT AND PLAN: Patient is a 39yo female with no significant pMhx presents with b/l knee pain x 5 days. 1- Knee pain and effusion. due to reactive arthritis ( not sure due to chlamydia or strep or both ) Synovial fluid cx neg Anti-Dnas and ASLO +. throat swab also came back + chlamydia +. - start doxy 100 bid x 14 days - start PVk 500 mg Q8h x days. - echo with mild TR. no other findings. - Noaproxen x 5 days after dc - then she can take ibuprofen as needed 2- Transaminitis: trending down. need LFTs as out pt 3- New onset DM : cont metformin after dc 4- hypomagnesemia: replete Mg DC home today. Medications coverage was checked and pat can afford prescribed Abx . mary was reffered to Dr. Crowe at [facility]
--- NOTE | 2019-05-11 18:27 | DS ---
Physical Exam: SUBJECTIVE: Patient seen and examined. She reports being able to ambulate better with less right knee pain. She also reports new onset right wrist pain, especially with extension. She denies fever, chills, nausea, shortness of breath , or chest pain. OBJECTIVE: Vital Signs Period Temp Pulse Resp BP Sys/Urrutia Pulse Ox Last 24 Hr 98.4 F-99.1 F 92-111 18-18 108-116/65-72 100 PHYSICAL EXAM GENERAL: The patient is awake, alert, and fully oriented, in no acute distress. HEAD: Normal with no signs of trauma. EYES: PERRL, extraocular movements intact, conjunctiva clear. ENT: Ears normal, nares patent, moist mucous membranes. NECK: Trachea midline, full range of motion LUNGS: Clear to auscultation bilaterally, no wheezes, no crackles, no accessory muscle use. HEART: Tachycardic, regular rhythm, no murmur ABDOMEN: Soft, nontender, nondistended, normoactive bowel sounds EXTREMITIES: Warm, well-perfused, slight edema b/l knees, no erythema; right wrist tender to palpation and with extension, 5/5 strength and sensation intact , no noted swelling NEUROLOGICAL: Cranial nerves II through XII grossly intact. Normal speech, gait not observed. PSYCH: Normal mood, normal affect. SKIN: Warm, dry, normal turgor LABS Laboratory Results - last 24 hr 05/08/19 05/08/19 05/09/19 00:20 10:15 07:25 POC Glucometer Magnesium Total Bilirubin Direct Bilirubin AST ALT Alkaline Phosphatase Total Protein Albumin Lyme IgM 23 kDa Band No Result Required. Lyme IgM 39 kDa Band No Result Required. Lyme IgM 41 kDa Band No Result Required. C. trachomatis (JOSEPH) Positive H N. gonorrhoeae (JOSEPH) Negative Anti-Streptolysin Scrn Anti-DNase B (Strep) 729 H Group A Strep Rapid 05/09/19 05/10/19 05/11/19 16:15 21:13 05:46 POC Glucometer 126 105 Magnesium Total Bilirubin Direct Bilirubin AST ALT Alkaline Phosphatase Total Protein Albumin Lyme IgM 23 kDa Band Lyme IgM 39 kDa Band Lyme IgM 41 kDa Band C. trachomatis (JOSEPH) N. gonorrhoeae (JOSEPH) Anti-Streptolysin Scrn 699.8 H Anti-DNase B (Strep) Group A Strep Rapid 05/11/19 05/11/19 05/11/19 07:28 11:40 11:53 POC Glucometer 134 Magnesium 1.2 L Total Bilirubin 0.4 Direct Bilirubin 0.2 AST 36 ALT 73 H Alkaline Phosphatase 195 H Total Protein 6.8 Albumin 2.5 L Lyme IgM 23 kDa Band Lyme IgM 39 kDa Band Lyme IgM 41 kDa Band C. trachomatis (JOSEPH) N. gonorrhoeae (JOSEPH) Anti-Streptolysin Scrn Anti-DNase B (Strep) Group A Strep Rapid Positive 05/11/19 17:22 POC Glucometer 129 Magnesium Total Bilirubin Direct Bilirubin AST ALT Alkaline Phosphatase Total Protein Albumin Lyme IgM 23 kDa Band Lyme IgM 39 kDa Band Lyme IgM 41 kDa Band C. trachomatis (JOSEPH) N. gonorrhoeae (JOSEPH) Anti-Streptolysin Scrn Anti-DNase B (Strep) Group A Strep Rapid HOSPITAL COURSE: Ms. Franks is a 39y/o female with no significant PMH who presents with b/l knee pain. She reports having left knee drained about 5 days prior to presentation and was diagnosed with bursitis at [facility]. She was given Ibuprofen and pain and swelling did not resolve and right knee began swelling and became painful, so she presented to [facility]. Patient had leukocytosis at presentation which resolved. X-rays b/l were negative for significant findings. Rheumatology saw pt and ordered labs, which BISHNU and anti-DNase were positive. Chlamydia was also positive, thought pt denies sexual intercourse in 1.5-2 years. Orthopedics drained 35mL from right knee with some improvement in pain. Fluid was negative for infection, WBCs were 25k. HIV, RPR, gonorrhea, Lyme were all negative. Pt was started on Celebrex initially but was switched to naproxen 500mg BID with improvement in symptoms and ability to ambulate. The day of discharge she developed right wrist pain with no swelling, worse with flexion. She was discharged with naproxen for 5 days and instructed to take omeprazole 20mg for 3 weeks. If she still has pain, she can take ibuprofen 400mg Q8H after finishing naproxen. Reactive arthritis following strep infection (positive rapid strep, throat cx pending) vs chlamydia infection was treated with doxycycline 100mg BID x 14 days and PCN VK 500mg TID x 10 days. TTE was negative except for trace TR. She was instructed to follow up with primary care. Pt was tachycardic in 100-120s during course. She denied palpitations. She was given IV fluids with some improvement. Pt was hypomagnesemic, it was repleted and pt was instructed to have labs drawn out patient. Pt was also repleted for hypokalemia which improved after single dose. Pts A1C was 6.9 and pt was started on metformin xr 500mg daily. She was instructed to follow low carb diet. Date of Admission:05/08/19 Date of Discharge: 05/11/19 Minutes to complete discharge: 35 Discharge Summary Problems reviewed: Yes Reason For Visit: MUSCLE PAIN, WEAKNESS Current Active Problems Chlamydia infection (Acute) Generalized weakness (Acute) Hypomagnesemia (Acute) Reactive arthritis of knee (Acute) Transaminitis (Acute) Diabetes mellitus type 2 in obese (Chronic) Condition: Improved - Instructions Diet, Activity, Other Instructions: Hospital Visit: You were admitted to the hospital with knee pain. Your right knee was drained, and you were given antibiotics and anti-inflammatories. You were also found to have diabetes. Your A1C is 6.9, which is on the lower end of diabetes. You were diagnosed with chlamydia and streptococcus infection . you were started on medication for that. Medications: Naproxen 500mg twice a day for 5 days Doxycycline 100mg every 12 hours a day for 14 days. start next dose on 05/12/19 at 7 am Penicillin VK 500mg every 8 hours for 10 days. start next dose at 2 am on Metformin XR 500mg daily. Buy Omeprazole 20mg over the counter. You will take it once a day while on naproxen Follow Up: Dr. Eddy, primary care, 1 week after discharge. You should have your magnesium level and liver enzymes checked. She will refer you to an kerrick kleaner operator for you to follow up as well. Dr. Wright, orthopedics Dr. Vela, rheumatology Other Instructions: 1. Ice your knees to help with soreness. Be sure to continue walking if you can , so your joints do not get stiff. 2. After your finish Naproxen, if you still have pain you may take Ibuprofen 400mg (2 200mg tablets) every 8 hours eith food as needed . Do not take Naproxen and Ibuprofen at the same time. 3. You should follow a diet low in carbohydrates. Avoid soft drinks, candy, cakes, breads, or pasta. You may eat whole wheat products in moderation. 4. Metformin should be taken with food. It may cause stomach upset or diarrhea when you first start taking it, but it should go away. 5. Call 911 or return to the emergency room if you have sudden increased pain in your joints, fever above 101, chest pain, or difficulty breathing. Buy your medications today on your way home Referrals: Joe Vela MD [Staff Physician] - 1 Week Judy Salvador MD [Staff Physician] - 1 Week Dennys Wright DO [Staff Physician] - Disposition: HOME - Home Medications Comprehensive Discharge Medication List: Ambulatory Orders metFORMIN XR [Glucophage Xr -] 500 mg PO DAILY@0700 #30 tab.sr.[id number] 05/09/19 Doxycycline Hyclate 100 mg PO Q12H #27 tablet 05/11/19 Ibuprofen 400 mg PO Q8H #30 tablet 05/11/19 Naproxen [Naprosyn -] 500 mg PO BID #10 tablet 05/11/19 Omeprazole 20 mg PO DAILY #21 tab.rap.dr 05/11/19 Penicillin V Potassium [Pen Vee K -] 500 mg PO Q8H #28 tablet 05/11/19 This patient is new to me today: No Emergency Visit: Yes ED Registration Date: 05/08/19 Care time: The patient presented to the Emergency Department on the above date and was hospitalized for further evaluation of their emergent condition. Critical Care patient: No - Discharge Referral Referred to [facility] No ATTENDING PHYSICIAN STATEMENT I saw and evaluated the patient. I reviewed the resident's note and discussed the case with the resident. I agree with the resident's findings and plan as documented. SUBJECTIVE: OBJECTIVE: ASSESSMENT AND PLAN:
[2019-05-11] MEDS ORDERED: INSULIN (NOVOLOG) ASPART 100 UNITS/ML 10ML VIAL ONE (18:28)
[2019-05-11 19:10] VITALS: BP 106/68; PULSE 116; TEMP 99
== END 2019-05-11 19:34 | disposition home or self-care (01) | DRG 346 ==
LOC: JER 21:54 → JERBED 05-08 02:43 → J5S 05-08 06:08
PROVIDERS: ADMIT Internal Medicine; ATTEND Internal Medicine
PROC: 0S9C3ZX Drainage of Right Knee Joint, Percutaneous Approach, Diagnostic (ICD-10-PCS; principal; 2019-05-08)
DX: M02.361 Reiter's disease, right knee (principal); A74.9 Chlamydial infection, unspecified; R74.0 Nonspecific elevation of levels of transaminase and lactic acid dehydrogenase [LDH]; E11.9 Type 2 diabetes mellitus without complications; R53.1 Weakness; D72.829 Elevated white blood cell count, unspecified; R00.0 Tachycardia, unspecified; E87.6 Hypokalemia; E87.1 Hypo-osmolality and hyponatremia; M25.561 Pain in right knee; M25.461 Effusion, right knee; A56.11 Chlamydial female pelvic inflammatory disease; B95.4 Other streptococcus as the cause of diseases classified elsewhere; E83.42 Hypomagnesemia; E88.09 Other disorders of plasma-protein metabolism, not elsewhere classified; E86.0 Dehydration
CPT/HCPCS: 36415; 71045-TC-FY; 73564-TC-LT-FY; 73564-TC-RT-FY; 76700-TC; 80053; 80061; 80074; 80076; 80307; 81003; 82550; 82962; 83036; 83605; 83721; 83735; 84100; 84443; 84550; 85025; 85027; 85610; 85651; 86038; 86060; 86140; 86215; 86431; 86593; 86618; 87040; 87070; 87075; 87086; 87205; 87389; 87491; 87591; 87804; 87880; 89051; 89060; 93005; 93010; 93306-TC; 97116-GP; 97162-GP; 99283-25; G0008; J0131; J7030; Q2036